=== PATIENT | male | born 1930 | race Caucasian/White ===

== ENCOUNTER 2017-07-23 18:38 | Inpatient (IN) | payer MEDICARE, OTHER ==
[~2017-07-23] VITALS: Ht 182.9 cm; Wt 100.5 kg
[~2017-07-23 18:38] MED LIST: ALLO300 PO; CARB1DRO EACH EYE; DIGO0.12 PO; LEVO125T3 PO; METO25 PO; OMEP20TA39 PO; SERT-129 PO; TERA2CAP3 PO; TRAZ100 PO; WARF5 PO
[2017-07-23 19:04] VITALS: BP 132/73; PULSE 150; RESP 16; O2SAT 97
[2017-07-23] MEDS ORDERED: DILTIAZEM HCL 25 MG/5 ML VIAL IV ONE (19:15)
[2017-07-23] MEDS ORDERED: SODIUM CHLORIDE 0.9% FLUSH 10 ML FLUSH IVF PRN (19:15)
[2017-07-23 19:24] LABS: AUTOMATED NEUTROPHIL # 4.2 TH/MM3 (1.8-7.7); BASOPHIL % 0.2 % (0.0-2.0); EOSINOPHIL % 0.5 % (0.0-4.0); HEMOGLOBIN 14.6 GM/DL (13.0-17.0); LYMPH % 3.6 % (9.0-44.0); LYMPHOCYTE # 0.2 TH/MM3 (1.0-4.8); MEAN CELL VOLUME 86.7 FL (80.0-100.0); MEAN CORPUSCULAR HEMOGLOBIN 29.3 PG (27.0-34.0); MEAN CORPUSCULAR HGB CONC 33.9 % (32.0-36.0); MEAN PLATELET VOLUME 8.1 FL (7.0-11.0); MONO % 1.3 % (0.0-8.0); MONOCYTE # 0.1 TH/MM3 (0-0.9); NEUT % 94.4 % (16.0-70.0); PLATELET COUNT 71 TH/MM3 (150-450); RED BLOOD COUNT 4.97 MIL/MM3 (4.50-5.90); WHITE BLOOD COUNT 4.4 TH/MM3 (4.0-11.0)
[2017-07-23 19:28] VITALS: PULSE 120; RESP 18; O2SAT 98
[2017-07-23] MEDS ORDERED: SODIUM CHLORIDE 0.9% FLUSH 10 ML FLUSH IV FLUSH PRN (19:30)
[2017-07-23] MEDS ORDERED: DILTIAZEM INJ 125 MG in SODIUM CHLORIDE 0.9% INJ 100 ML IV PRN (19:30)
--- NOTE | 2017-07-23 19:35 | RADRPT ---
EXAM DATE/TIME: 07/23/2017 19:12 [facility] COMPARISON: CHEST SINGLE AP, July 15, 2013, 20:51. INDICATIONS : Chest pain MEDICAL HISTORY : Cardiovascular disease. SURGICAL HISTORY : None. ENCOUNTER: Initial ACUITY: 1 day PAIN SCORE: 2/10 LOCATION: Bilateral chest FINDINGS: A single view of the chest demonstrates the lungs to be symmetrically aerated without evidence of mas s, infiltrate or effusion. The cardiomediastinal contours are unremarkable. Osseous structures are intact. CONCLUSION: No evidence of acute cardiopulmonary disease. Luis Fernando Krishnamurthy MD on July 23, 2017 at 19:33 Board Certified Radiologist. This report was verified electronically.
--- NOTE | 2017-07-23 19:38 | PD ---
HPI Chief Complaint: Chest Pain Time Seen by Provider: 19:06 Travel History International Travel<30 days: No Contact w/Intl Traveler<30days: No Traveled to known affect area: No History of Present Illness HPI Patient is an 86-year-old male presenting to emergency for evaluation of chest pain. Per EMS the pain started approximately 3:00 this afternoon and was accompanied by nausea. Patient resides at the [place] [facility]ial. Patient states the pain is midsternal, he states it does not radiate to his arm or jaw. He reports feeling short of breath. Symptom onset was sudden, symptom severity is moderate to severe. Patient's symptoms are exacerbated with movement and exertion. EVAC reported that patient was in A. fib with RVR with a rate up to 120. Patient is a history of atrial fibrillation, hypertension, chronic kidney disease, type 2 diabetes, coronary artery disease, GERD, hypothyroidism. PFSH Past Medical History Arthritis: Yes Atrial Fibrillation: Yes Autoimmune Disease: Yes (RA) Depression: Yes High Cholesterol: Yes Congestive Heart Failure: Yes Coronary Artery Disease: Yes Diabetes: Yes GERD: Yes Gout: Yes Genitourinary: Yes (BPH) Hepatitis: No Hiatal Hernia: Yes Hypertension: Yes Immune Disorder: Yes Kidney Stones: Yes Musculoskeletal: Yes (SPINAL STENOSIS, ARTHRITIS,LUMBAR DISK HERNIATION, GOUT) Respiratory: Yes (SLEEP APNEA) Myocardial Infarction: Yes (4 MD'S) Renal Failure: Yes Sleep Apnea: Yes Thyroid Disease: Yes Triglycerides - High: Yes Past Surgical History Abdominal Surgery: Yes (INGUINAL HERNIA REPAIR, APPENDECTOMY) Appendectomy: Yes Body Medical Devices: L HIP/THIGH PLATE AND SCREWS, R ANKLE PLATE AND SCREWS Eye Surgery: Yes (BILATERAL CATARACT SURGERY) Other Surgery: Yes (APPENDECTOMY, HERNIA REPAIR) Social History Alcohol Use: Yes (1 GLASS SCOTCH OCC) Tobacco Use: No Substance Use: No Allergies-Medications (Allergen,Severity, Reaction): Coded Allergies: No Known Allergies (Verified Allergy, Unknown, 07/23/17) Reported Meds & Prescriptions Reported Meds & Active Scripts Active Reported Melatonin 5 Mg Tab 5 Mg PO HS Levothyroxine (Levothyroxine Sodium) 125 Mcg Tab 125 Mcg PO DAILY Lasix (Furosemide) 20 Mg Tab 20 Mg PO DAILY Ibuprofen 400 Mg Tab 400 Mg PO Q8H PRN Fibercon (Calcium Polycarbophil) 625 Mg Tab 625 Mg PO PRN Digoxin 0.125 Mg Tab 0.125 Mg PO EVERY OTHER DAY Colace (Docusate Sodium) 100 Mg Capsule 100 Mg PO DAILY Carvedilol 6.25 Mg Tab 6.25 Mg PO BID Biofreeze Topical (Menthol Topical) 4 % Gel 1 Applic TOPICAL DIRECTED PRN Aspirin 81 Mg Chew 81 Mg CHEW ONCE Nitrostat SL (Nitroglycerin) 0.4 Mg Subl 0.4 Mg SL DIRECTED PRN 1 tablet under the tongue as needed for chest pain. Repeat every 5 minutes for a total of 3 DOSES or call 911 if NO relief. Milk of Magnesia Liq (Magnesium Hydroxide) 400 Mg/5 Ml Susp 30 Ml PO DAILY PRN Meloxicam 15 Mg Tab 15 Mg PO DAILY Omeprazole 20 Mg Tab 20 Mg PO DAILY Metolazone 5 Mg Tab 5 Mg PO THURSDAY Aldactone (Spironolactone) 25 Mg Tab 25 Mg PO DAILY Tylenol (Acetaminophen) 325 Mg Tab 650 Mg PO Q4H PRN Thera-Tabs (Multiple Vitamin) 1 Tab Tab Terazosin (Terazosin HCl) 2 Mg Cap 2 Mg PO HS Sertraline (Sertraline HCl) 100 Mg Tab 100 Mg PO HS Refresh Opth Drops (Polyvinyl Alcohol-Povidone Opth Drops) 1.4-0.6% Drops 1-2 Drop EACH EYE PRN PRN Poly-Iron 150 (Polysaccharide Iron Complex) 150 Mg Iron Cap 150 Mg PO Q12HR Review of Systems Except as stated in HPI: all other systems reviewed are Neg Cardiovascular: Positive: Chest Pain or Discomfort, Irregular Rhythm, Tachycardia, Dyspnea on exertion Respiratory: Positive: Shortness of Breath Physical Exam Narrative GENERAL: Overweight, well-developed, alert elderly gentleman. Presenting in no acute distress. SKIN: Warm and dry. HEAD: Atraumatic. Normocephalic. EYES: Pupils equal and round. No scleral icterus. No injection or drainage. ENT: No nasal bleeding or discharge. Mucous membranes pink and moist. NECK: Trachea midline. No JVD. CARDIOVASCULAR: Regular irregular, tachycardic RESPIRATORY: No accessory muscle use. Diminished in bases GASTROINTESTINAL: Abdomen soft, non-tender, nondistended. Hepatic and splenic margins not palpable. MUSCULOSKELETAL: Extremities without clubbing, cyanosis, or edema. No obvious deformities. NEUROLOGICAL: Awake and alert. No obvious cranial nerve deficits. Motor grossly within normal limits. Five out of 5 muscle strength in the arms and legs. Normal speech. PSYCHIATRIC: Appropriate mood and affect; insight and judgment normal. Data Data Last Documented VS Vital Signs Date Time Temp Pulse Resp B/P (MAP) Pulse Ox O2 Delivery O2 Flow Rate FiO2 07/23/17 22:07 96 20 125/59 (81) 100 2.00 07/23/17 21:20 Nasal Cannula 07/23/17 19:43 98.6 Orders Orders Electrocardiogram (07/23/17 19:) B-Type Natriuretic Peptide (07/23/17 19:) Ckmb (Isoenzyme) Profile (07/23/17 19:06) Complete Blood Count With Diff (07/23/17:) Comprehensive Metabolic Panel (07/23/17:) Magnesium (Mg) (07/23/17:) Prothrombin Time / Inr (Pt) (07/23/17:) Act Partial Throm Time (Ptt) (07/23/17:) Troponin I (07/23/17:) Lipase (07/23/17 19:) Chest, Single Ap (07/23/17 19:06) Ecg Monitoring (07/23/17 19:06) Bilateral Bp Monitoring (07/23/17:) Iv Access Insert/Monitor (07/23/17:) Oximetry (07/23/17:) Oxygen Administration (07/23/17:) Sodium Chloride 0.9% Flush (Ns Flush) (07/23/17 19:15) Diltiazem Inj (Cardizem Inj) (07/23/17 19:15) Digoxin (07/23/17 19:30) Diltiazem Inj (Cardizem Inj) (07/23/17 19:30) Sodium Chloride 0.9% Flush (Ns Flush) (07/23/17 19:30) Diltiazem Inj (Cardizem Inj) (07/23/17 19:45) Ct Abd/Pel W Iv Contrast(Rout) (07/23/17 ) Admit Order (Ed Use Only) (07/23/17 22:41) Labs Laboratory Tests Test 07/23/17 19:07 07/23/17 19:09 Digoxin Level 0.5 NG/ML White Blood Count 4.4 TH/MM3 Red Blood Count 4.97 MIL/MM3 Hemoglobin 14.6 GM/DL Hematocrit 43.0 % Mean Corpuscular Volume 86.7 FL Mean Corpuscular Hemoglobin 29.3 PG Mean Corpuscular Hemoglobin Concent 33.9 % Red Cell Distribution Width 15.0 % Platelet Count 71 TH/MM3 Mean Platelet Volume 8.1 FL Neutrophils (%) (Auto) 94.4 % Lymphocytes (%) (Auto) 3.6 % Monocytes (%) (Auto) 1.3 % Eosinophils (%) (Auto) 0.5 % Basophils (%) (Auto) 0.2 % Neutrophils # (Auto) 4.2 TH/MM3 Lymphocytes # (Auto) 0.2 TH/MM3 Monocytes # (Auto) 0.1 TH/MM3 Eosinophils # (Auto) 0.0 TH/MM3 Basophils # (Auto) 0.0 TH/MM3 CBC Comment AUTO DIFF Differential Total Cells Counted 100 Neutrophils % (Manual) 70 % Band Neutrophils % 24 % Lymphocytes % 4 % Monocytes % 1 % Eosinophils % 1 % Neutrophils # (Manual) 4.1 TH/MM3 Nucleated Red Blood Cells 1 /100 WBC Differential Comment FINAL DIFF MANUAL Toxic Vacuolation PRESENT Platelet Estimate LOW Platelet Morphology Comment NORMAL Prothrombin Time 11.5 SEC Prothromb Time International Ratio 1.1 RATIO Activated Partial Thromboplast Time 23.7 SEC Blood Urea Nitrogen 25 MG/DL Creatinine 1.48 MG/DL Random Glucose 84 MG/DL Total Protein 6.9 GM/DL Albumin 3.5 GM/DL Calcium Level 9.4 MG/DL Magnesium Level 1.6 MG/DL Alkaline Phosphatase 219 U/L Aspartate Amino Transf (AST/SGOT) 459 U/L Alanine Aminotransferase (ALT/SGPT) 257 U/L Total Bilirubin 3.0 MG/DL Sodium Level 137 MEQ/L Potassium Level 4.6 MEQ/L Chloride Level 101 MEQ/L Carbon Dioxide Level 26.6 MEQ/L Anion Gap 9 MEQ/L Estimat Glomerular Filtration Rate 45 ML/MIN Total Creatine Kinase 50 U/L Troponin I LESS THAN 0.02 NG/ML B-Type Natriuretic Peptide 58 PG/ML Lipase 306 U/L MDM Medical Decision Making Medical Screen Exam Complete: Yes Emergency Medical Condition: Yes Interpretation(s) Vital Signs Date Time Temp Pulse Resp B/P (MAP) Pulse Ox O2 Delivery O2 Flow Rate FiO2 07/23/17 19:28 120 18 98 Nasal Cannula 2.00 3/15/18 19:04 150 16 132/73 (54) 97 Differential Diagnosis Cardiac arrhythmia versus metabolic abnormality versus congestive heart failure versus other Narrative Course Patient presented to emergency for evaluation of shortness of breath and chest pain. Patient was found to be tachycardic, initial EKG showed atrial fibrillation with RVR. Patient was given 20 mg of IV Cardizem, heart rate remained elevated, Cardizem drip was initiated. Patient complained of mild nausea on presentation. When labs resulted, liver enzymes were elevated. CBC was unremarkable. BUN and creatinine are slightly elevated. Heart rate trended down with Cardizem drip. CT scan of the abdomen and pelvis ordered. Discussed findings with my attending physician Discussed findings with Dr. Luis who accepted admission. She was advised on the CT scan the abdomen and pelvis and will follow. Admit orders placed. Diagnosis Primary Impression: Atrial fibrillation with rapid ventricular response Additional Impressions: Transaminitis CKD (chronic kidney disease) Qualified Codes: N18.9 - Chronic kidney disease, unspecified Admitting Information Admitting Physician Requests: Admit Condition: Stable Margarita Dee Jul 23, 2017 19:38
[2017-07-23 19:43] VITALS: TEMP 98.6
[2017-07-23 19:43] LABS: ALT (GPT) 257 U/L (12-78)
[2017-07-23 19:45] LABS: INTERNATIONAL NORMALIZED RATIO 1.1 RATIO; PROTHROMBIN TIME - PATIENT 11.5 SEC (9.8-11.6)
[2017-07-23] MEDS ORDERED: DILTIAZEM HCL 50 MG/10 ML VIAL IV ONE (19:45)
[2017-07-23 20:11] LABS: ALBUMIN 3.5 GM/DL (3.4-5.0); ALKALINE PHOSPHATASE 219 U/L (45-117); AST (GOT) 459 U/L (15-37); BICARBONATE 26.6 MEQ/L (21.0-32.0); BLOOD UREA NITROGEN 25 MG/DL (7-18); CALCIUM 9.4 MG/DL (8.5-10.1); CHLORIDE 101 MEQ/L (98-107); CREATININE 1.48 MG/DL (0.60-1.30); GLOMERULAR FILTRATION RATE 45 ML/MIN (>89); GLUCOSE,RANDOM 84 MG/DL (74-106); MAGNESIUM 1.6 MG/DL (1.5-2.5); SODIUM (NA) 137 MEQ/L (136-145); TOTAL PROTEIN 6.9 GM/DL (6.4-8.2); TROPONIN I LESS THAN 0.02 NG/ML (0.02-0.05)
[2017-07-23] MEDS ORDERED: LEVO125T4 PO (20:12)
[2017-07-23] MEDS ORDERED: MENT4GEL2 TOPICAL (20:12)
[2017-07-23] MEDS ORDERED: MELO15TA20 PO (20:12)
[2017-07-23] MEDS ORDERED: TYLE325T PO (20:12)
[2017-07-23] MEDS ORDERED: SERT-129 PO (20:12)
[2017-07-23] MEDS ORDERED: NITR0.4S SL (20:12)
[2017-07-23] MEDS ORDERED: MILKSUS PO (20:12)
[2017-07-23] MEDS ORDERED: REFRDRO EACH EYE (20:12)
[2017-07-23] MEDS ORDERED: MELA5 PO (20:12)
[2017-07-23] MEDS ORDERED: IBUP1TAB5 PO (20:12)
[2017-07-23] MEDS ORDERED: THERTAB53 (20:12)
[2017-07-23] MEDS ORDERED: DIGO0.12 PO (20:12)
[2017-07-23] MEDS ORDERED: FIBE625T PO (20:12)
[2017-07-23] MEDS ORDERED: METO5TAB3 PO (20:12)
[2017-07-23] MEDS ORDERED: SPIR25 PO (20:12)
[2017-07-23] MEDS ORDERED: OMEP20TA93 PO (20:12)
[2017-07-23] MEDS ORDERED: COLA100C5 PO (20:12)
[2017-07-23] MEDS ORDERED: NU-IRON PO (20:12)
[2017-07-23] MEDS ORDERED: CARV6.252 PO (20:12)
[2017-07-23] MEDS ORDERED: ASPI-516 CHEW (20:12)
[2017-07-23] MEDS ORDERED: TERA2CAP3 PO (20:12)
[2017-07-23] MEDS ORDERED: FURO1TAB62 PO (20:12)
[2017-07-23 20:45] LABS: BANDS 24 % (0-6); CORRECTED NUCLEATED RBC 1 /100 WBC (0-0); LYMPHOCYTES 4 % (9-44); MONOCYTES 1 % (0-8); NEUTROPHIL # MANUAL DIFF 4.1 TH/MM3 (1.8-7.7); NUCLEATED RED BLOOD CELL 1 (0-0); POLYS (SEG NEUTROPHILS) 70 % (16-70)
[2017-07-23 20:46] LABS: TOXIC VACUOLATION PRESENT (NONE SEEN)
[2017-07-23 21:20] VITALS: BP 112/58; PULSE 115; RESP 18; O2SAT 100
[2017-07-23 22:07] VITALS: BP 125/59; PULSE 96; RESP 20; O2SAT 100
[2017-07-23] MEDS ORDERED: IOHEXOL 350 MG/ML 10 ML VIAL (for RAD DIAG) IVCONTRAST ONE (22:44)
--- NOTE | 2017-07-23 23:01 | RADRPT ---
EXAM DATE/TIME: 07/23/2017 22:37 [facility] COMPARISON: CT ABDOMEN & PELVIS W CONTRAST, September 22, 2014, 22:08. INDICATIONS : Patient complains of abdominal pain with nausea. IV CONTRAST: 100 cc Omnipaque 350 (iohexol) IV ORAL CONTRAST: No oral contrast ingested. RADIATION DOSE: 15.76 CTDIvol (mGy) MEDICAL HISTORY : Cardiovascular disease. Hypertension. Renal calculi. SURGICAL HISTORY : Appendectomy. Inguinal hernia repair. ENCOUNTER: Initial ACUITY: 1 day PAIN SCALE: 4/10 LOCATION: abdomen/pelvis TECHNIQUE: Volumetric scanning of the abdomen and pelvis was performed. Using automated exposure control and ad justment of the mA and/or kV according to patient size, radiation dose was kept as low as reasonably achievable to obtain optimal diagnostic quality images. DICOM format image data is available electro nically for review and comparison. FINDINGS: LOWER LUNGS: Very tiny bilateral pleural effusions with concomitant minimal atelectatic changes. Other Waldo calci fication of the coronary arteries. LIVER: Homogeneous density without lesion. There is no dilation of the biliary tree. Slight increased densi ty in the gallbladder neck may represent tiny stones or sludge. Gallbladder is mildly distended. SPLEEN: Spleen is enlarged measuring 16.8 cm in greatest SI dimension. PANCREAS: Within normal limits. KIDNEYS: Normal in size and shape. Stable bilateral renal cortical cysts. No hydronephrosis or nephrolithiasis . ADRENAL GLANDS: Stable 2.2 cm nodule on the right. VASCULAR: There is no aortic aneurysm. Dense calcification of the abdominal and pelvic vasculature. Retroaortic left renal vein. BOWEL/MESENTERY: Stable inflammatory stranding within the mid mesentery possibly representing a chronic mesenteritis. ABDOMINAL WALL: Within normal limits. RETROPERITONEUM: There is no lymphadenopathy. BLADDER: No wall thickening or mass. REPRODUCTIVE: Within normal limits. INGUINAL: There is no lymphadenopathy or hernia. MUSCULOSKELETAL: Levoscoliosis of the lumbar spine with associated degenerative changes. Compression screw and sidepla te securing a presumed old femoral neck fracture on the left. CONCLUSION: 1. Mild gallbladder distention with some increased density in the dependent portion of the neck possi jess representing small stones or sludge. No pericholecystic stranding, however. 2. Splenomegaly. 3. Probable 2.2 cm right adrenal adenoma, unchanged. 4. 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 5. Atherosclerotic calcification of the coronary arteries. 6. Tiny, bilateral pleural effusions with common atelectatic changes. Waldo Mcguire MD on July 23, 2017 at 22:51 Board Certified Radiologist. This report was verified electronically.
[2017-07-23 23:14] VITALS: BP 124/62; PULSE 100; RESP 18; O2SAT 100
[2017-07-24] VITALS (13 sets, daily range): BP systolic 92–118; BP diastolic 42–60; PULSE 54–93; RESP 16–21; TEMP 98–98.5; O2SAT 96–100
[2017-07-24] MEDS ORDERED: ASPIRIN 81 MG CHEW TAB CHEW SCH (01:45)
[2017-07-24] MEDS ORDERED: LACTULOSE SYRUP 20 GM/30 ML CUP PO PRN (02:00)
[2017-07-24] MEDS ORDERED: ONDANSETRON HCL 4 MG/2 ML VIAL IVP PRN (02:00)
[2017-07-24] MEDS ORDERED: SENNOSIDES 8.6 MG TAB PO PRN (02:00)
[2017-07-24] MEDS ORDERED: BISACODYL 10 MG SUPP RECTAL PRN (02:00)
[2017-07-24] MEDS ORDERED: MAGNESIUM HYDROXIDE SUSP 30 ML CUP PO PRN (02:00)
[2017-07-24] MEDS ORDERED: NALOXONE HCL 0.4 MG/ML AMP IV PUSH PRN (02:00)
[2017-07-24] MEDS ORDERED: MELATONIN 5 MG TAB PO ONE (03:00)
[2017-07-24] MEDS: HEPARIN SODIUM - SQ 10,000 UNITS/ML VIAL SQ SCH ×3 (03:30→17:18)
[2017-07-24] MEDS ORDERED: GLUCAGON 1 MG/ML VIAL OTHER PRN (04:00)
[2017-07-24] MEDS ORDERED: DEXTROSE 50% IN WATER 50 ML VIAL(D50) IV PUSH PRN (04:00)
--- NOTE | 2017-07-24 04:02 | HHI.HP ---
[facility] Admission Diagnosis AFIB W/ RVR Diagnoses: Travel History International Travel<30 Days: No Contact w/Intl Traveler <30 Da: No Traveled to Known Affected Are: No History of Present Illness 86-year-old male with a past medical history significant for CHF (no recent echo ), hypertension, hyperlipidemia, type 2 diabetes mellitus, chronic kidney disease, coronary artery disease, atrial fibrillation (not currently on chronic anticoagulation) and GERD presents to the emergency department from [facility] for the evaluation of chest pain. Per ED documentation, the chest pain started around 3:00 yesterday afternoon and was accompanied with nausea. The patient is a resident of the shelter. He is any chest pain at the time of our interview. He was found to be in atrial fibrillation with rapid ventricular response on arrival to the emergency department. At the time of our interview he complains of bilateral lower extremity pain and pain in his buttock region which he states is from lying on the hard palate. He denies any chest pain or shortness of breath. Denies nausea/vomiting/diarrhea. No fever/ chills. A&O 3. The patient is a poor historian whose past medical history is obtained from medical record review. Review of Systems Except as stated in HPI: all other systems reviewed are Neg Past Family Social History Past Medical History (Obtained from medical records) CHF (no recent echo), hypertension, hyperlipidemia, type 2 diabetes mellitus, chronic kidney disease, coronary artery disease, atrial fibrillation (not currently on chronic anticoagulation) and GERD Past Surgical History Appendectomy Reported Medications Reported Meds & Active Scripts Active Reported Melatonin 5 Mg Tab 5 Mg PO HS Levothyroxine (Levothyroxine Sodium) 125 Mcg Tab 125 Mcg PO DAILY Lasix (Furosemide) 20 Mg Tab 20 Mg PO DAILY Ibuprofen 400 Mg Tab 400 Mg PO Q8H PRN Fibercon (Calcium Polycarbophil) 625 Mg Tab 625 Mg PO PRN Digoxin 0.125 Mg Tab 0.125 Mg PO EVERY OTHER DAY Colace (Docusate Sodium) 100 Mg Capsule 100 Mg PO DAILY Carvedilol 6.25 Mg Tab 6.25 Mg PO BID Biofreeze Topical (Menthol Topical) 4 % Gel 1 Applic TOPICAL DIRECTED PRN Aspirin 81 Mg Chew 81 Mg CHEW ONCE Nitrostat SL (Nitroglycerin) 0.4 Mg Subl 0.4 Mg SL DIRECTED PRN 1 tablet under the tongue as needed for chest pain. Repeat every 5 minutes for a total of 3 DOSES or call 911 if NO relief. Milk of Magnesia Liq (Magnesium Hydroxide) 400 Mg/5 Ml Susp 30 Ml PO DAILY PRN Meloxicam 15 Mg Tab 15 Mg PO DAILY Omeprazole 20 Mg Tab 20 Mg PO DAILY Metolazone 5 Mg Tab 5 Mg PO THURSDAY Aldactone (Spironolactone) 25 Mg Tab 25 Mg PO DAILY Tylenol (Acetaminophen) 325 Mg Tab 650 Mg PO Q4H PRN Thera-Tabs (Multiple Vitamin) 1 Tab Tab Terazosin (Terazosin HCl) 2 Mg Cap 2 Mg PO HS Sertraline (Sertraline HCl) 100 Mg Tab 100 Mg PO HS Refresh Opth Drops (Polyvinyl Alcohol-Povidone Opth Drops) 1.4-0.6% Drops 1-2 Drop EACH EYE PRN PRN Poly-Iron 150 (Polysaccharide Iron Complex) 150 Mg Iron Cap 150 Mg PO Q12HR Allergies: Coded Allergies: No Known Allergies (Verified Allergy, Unknown, 07/23/17) Family History Negative for CAD/DM Social History Denies alcohol, tobacco and illicit drugs Physical Exam Vital Signs Vital Signs Date Time Temp Pulse Resp B/P (MAP) Pulse Ox O2 Delivery O2 Flow Rate FiO2 07/24/17 00:03 90 18 118/60 (79) 99 2.00 07/23/17 23:14 100 18 124/62 (82) 100 Nasal Cannula 2.00 07/23/17 22:07 96 20 125/59 (81) 100 2.00 07/23/17 21:20 115 18 112/58 (76) 100 Nasal Cannula 2.00 07/23/17 20:39 100 Nasal Cannula 2.00 07/23/17 20:38 115 137/65 07/23/17 19:43 98.6 07/23/17 19:28 120 18 98 Nasal Cannula 2.00 07/23/17 19:04 150 16 132/73 (92) 97 Physical Exam GENERAL: male lying in bed SKIN: No rashes, ecchymoses or lesions. Cool and dry. HEAD: Atraumatic. Normocephalic. No temporal or scalp tenderness. EYES: Pupils equal round and reactive. Extraocular motions intact. No scleral icterus. No injection or drainage. ENT: Nose without bleeding, purulent drainage or septal hematoma. Throat without erythema, tonsillar hypertrophy or exudate. Uvula midline. Airway patent. NECK: Trachea midline. No JVD or lymphadenopathy. Supple, nontender, no meningeal signs. CARDIOVASCULAR: Irregularly irregular rhythm with regular rate. No murmurs/rubs /gallops. RESPIRATORY: Clear to auscultation. Breath sounds equal bilaterally. No wheezes , rales, or rhonchi. GASTROINTESTINAL: Abdomen soft, non-tender, nondistended. No hepato-splenomegaly , or palpable masses. No guarding. MUSCULOSKELETAL: Extremities without clubbing, cyanosis, or edema. No joint tenderness, effusion, or edema noted. No calf tenderness. NEUROLOGICAL: Awake and alert. Cranial nerves II through XII intact. Motor and sensory grossly within normal limits. Normal speech. Laboratory Laboratory Tests Test 07/23/17 19:07 07/23/17 19:09 Digoxin Level 0.5 White Blood Count 4.4 Red Blood Count 4.97 Hemoglobin 14.6 Hematocrit 43.0 Mean Corpuscular Volume 86.7 Mean Corpuscular Hemoglobin 29.3 Mean Corpuscular Hemoglobin Concent 33.9 Red Cell Distribution Width 15.0 Platelet Count 71 Mean Platelet Volume 8.1 Neutrophils (%) (Auto) 94.4 Lymphocytes (%) (Auto) 3.6 Monocytes (%) (Auto) 1.3 Eosinophils (%) (Auto) 0.5 Basophils (%) (Auto) 0.2 Neutrophils # (Auto) 4.2 Lymphocytes # (Auto) 0.2 Monocytes # (Auto) 0.1 Eosinophils # (Auto) 0.0 Basophils # (Auto) 0.0 CBC Comment AUTO DIFF Differential Total Cells Counted 100 Neutrophils % (Manual) 70 Band Neutrophils % 24 Lymphocytes % 4 Monocytes % 1 Eosinophils % 1 Neutrophils # (Manual) 4.1 Nucleated Red Blood Cells 1 Differential Comment FINAL DIFF MANUAL Toxic Vacuolation PRESENT Platelet Estimate LOW Platelet Morphology Comment NORMAL Prothrombin Time 11.5 Prothromb Time International Ratio 1.1 Activated Partial Thromboplast Time 23.7 Blood Urea Nitrogen 25 Creatinine 1.48 Random Glucose 84 Total Protein 6.9 Albumin 3.5 Calcium Level 9.4 Magnesium Level 1.6 Alkaline Phosphatase 219 Aspartate Amino Transf (AST/SGOT) 459 Alanine Aminotransferase (ALT/SGPT) 257 Total Bilirubin 3.0 Sodium Level 137 Potassium Level 4.6 Chloride Level 101 Carbon Dioxide Level 26.6 Anion Gap 9 Estimat Glomerular Filtration Rate 45 Total Creatine Kinase 50 Troponin I LESS THAN 0.02 B-Type Natriuretic Peptide 58 Lipase 306 Result Diagram: 07/23/17190807/23/171908 Caprini VTE Risk Assessment Caprini VTE Risk Assessment: Mod/High Risk (score >= 2) Caprini Risk Assessment Model Point Value = 1 Point Value = 2 Point Value = 3 Point Value = 5 Age 41-60 Minor surgery BMI > 25 kg/m2 Swollen legs Varicose veins or History of unexplained or recurrent spontaneous Oral contraceptives or hormone replacement Sepsis (< 1 month) Serious lung disease, including pneumonia (< 1 month) Abnormal pulmonary function Acute myocardial infarction Congestive heart failure (< 1 month) History of inflammatory bowel disease Medical patient at bed rest Age 61-74 Arthroscopic surgery Major open surgery (> 45 min) Laparoscopic surgery (> 45 min) Malignancy Confined to bed (> 72 hours) Immobilizing plaster cast Central venous access Age >= 75 History of VTE Family history of VTE Factor V Leiden Prothrombin [id number] Lupus anticoagulant Anticardiolipin antibodies Elevated serum homocysteine Heparin-induced thrombocytopenia Other congenital or acquired thrombophilia Stroke (< 1 month) Elective arthroplasty Hip, pelvis, or leg fracture Acute spinal cord injury (< 1 month) Prophylaxis Regimen Total Risk Factor Score Risk Level Prophylaxis Regimen 0-1 Low Early ambulation 2 Moderate Order ONE of the following: *Sequential Compression Device (SCD) *Heparin 5000 units SQ BID 3-4 Higher Order ONE of the following medications: *Heparin 5000 units SQ TID *Enoxaparin/Lovenox 40 mg SQ daily (WT < 150 kg, CrCl > 30 mL/min) *Enoxaparin/Lovenox 30 mg SQ daily (WT < 150 kg, CrCl > 10-29 mL/min) *Enoxaparin/Lovenox 30 mg SQ BID (WT < 150 kg, CrCl > 30 mL/min) AND/OR *Sequential Compression Device (SCD) 5 or more Highest Order ONE of the following medications: *Heparin 5000 units SQ TID (Preferred with Epidurals) *Enoxaparin/Lovenox 40 mg SQ daily (WT < 150 kg, CrCl > 30 mL/min) *Enoxaparin/Lovenox 30 mg SQ daily (WT < 150 kg, CrCl > 10-29 mL/min) *Enoxaparin/Lovenox 30 mg SQ BID (WT < 150 kg, CrCl > 30 mL/min) AND *Sequential Compression Device (SCD) Assessment and Plan Assessment and Plan Assessment/plan: 1. Atrial fibrillation with rapid ventricular response EKG significant for A. fib with RVR, pulse 142, no ST segment elevations or depressions, personally reviewed Patient with history of atrial fibrillation although not on chronic anticoagulation likely secondary to frequent falls Diltiazem drip, wean as tolerated Telemetry Continue home digoxin, carvedilol 2. Transaminitis Unclear etiology CT of the abdomen/pelvis significant for mild gallbladder distention with some increased density in the dependent portion of the neck Gallbladder ultrasound pending Hepatitis profile pending Repeat CMP Patient without leukocytosis and denies right upper quadrant pain 3. CHF/CAD Continue home medications 4. Diabetes mellitus Sliding scale insulin Monitor blood glucose 5. Hypertension/hyperlipidemia/GERD/hypothyroidism Continue home medications 6. Chronic kidney disease Creatinine 1.48, baseline for this patient Monitor renal function FEN Heart healthy diabetic diet Electrolytes: Monitor and replete when necessary Heparin PT consulted, appreciate assistance Physician Certification 2 Midnight Certification Type: Admission for Inpatient Services Order for Inpatient Services The services are ordered in accordance with Medicare regulations or non- Medicare payer requirements, as applicable. In the case of services not specified as inpatient-only, they are appropriately provided as inpatient services in accordance with the 2-midnight benchmark. Estimated LOS (days): 2 2 days is the estimated time the patient will need to remain in the hospital, assuming treatment plan goals are met and no additional complications. Post-Hospital Plan: Not yet determined Aimee Luis MD Jul 24, 2017 04:02
[2017-07-24] MEDS: INSULIN ASPART SUPPLEMENTAL SCALE SQ SCH ×4 (08:00→20:16)
[2017-07-24] MEDS: SODIUM CHLORIDE 0.9% FLUSH 10 ML FLUSH IV FLUSH SCH ×2 (09:00→20:16)
[2017-07-24] MEDS: LEVOTHYROXINE SODIUM 125 MCG TAB PO SCH (10:06)
[2017-07-24] MEDS: DOCUSATE SODIUM 50 MG/SENNA 8.6 MG TAB PO SCH ×2 (10:06→20:15)
[2017-07-24] MEDS: PANTOPRAZOLE SOD 20 MG DELAYED RELEASE TAB PO SCH (10:06)
[2017-07-24] MEDS: SPIRONOLACTONE 25 MG TAB PO SCH (10:06)
[2017-07-24] MEDS: CARVEDILOL 6.25 MG TAB PO SCH ×2 (10:06→20:15)
[2017-07-24] MEDS: FUROSEMIDE 20 MG TAB PO SCH (10:07)
[2017-07-24] MEDS: DIGOXIN 0.125 MG TAB PO SCH (10:07)
--- NOTE | 2017-07-24 10:37 | RADRPT ---
EXAM DATE/TIME: 07/24/2017 07:50 [place] COMPARISON: CT ABDOMEN & PELVIS W CONTRAST, July 23, 2017, 22:37. INDICATIONS : Right upper quadrant pain. MEDICAL HISTORY : Myocardial infarction. Congestive heart failure. Hypercholesterolemia. Thyroid disease. Kidney stones . Renal failure. Arthritis. GERD. Gout. Diabetes. SURGICAL HISTORY : Appendectomy. Hiatal hernia repair. Left hip thigh repair. Right ankle repair. ENCOUNTER: Initial ACUITY: 1 day PAIN SCORE: 5/10 LOCATION: Right upper quadrant MEASUREMENTS: LIVER: 19.5 cm length COMMON DUCT: 7 mm RIGHT KIDNEY: 12.2 x 5.0 x 4.2 cm FINDINGS: LIVER: Echotexture the liver is somewhat heterogeneous. No focal masses seen. The left lobe of the liver is not well visualized. There is no intrahepatic biliary ductal dilation. COMMON DUCT: No intraluminal mass or stone visualized. GALLBLADDER: There is mild gallbladder wall thickening. No definite stones are seen. There is minimal sludge in th e dependent portion of the gallbladder. There is no pericolic cystic fluid. PANCREAS: The pancreas was not well-visualized due to overlying bowel gas. RIGHT KIDNEY: There are simple cysts within the right kidney. The largest measures 3.5 x 2.9 x 3.2 cm. CONCLUSION: 1. The examination demonstrates mild gallbladder wall thickening and sludge in the dependent portion of the gallbladder. No paracolic cystic fluid is evident. 2. Simple cyst identified within the right kidney. 3. No stones seen within the common duct. Maged Cobb MD on July 24, 2017 at 9:52 Board Certified Radiologist. This report was verified electronically.
--- NOTE | 2017-07-24 14:33 | EKG ---
Date Performed: 07/23/2017 Time Performed: 19:03:54 PTAGE: 86 years EKG: ATRIAL FIBRILLATION WITH RAPID VENTRICULAR RESPONSE INFERIOR MYOCARDIAL INFARCTION MODERATE T-WAVE ABNORMALITY, CONSIDER LATERAL ISCHEMIA ABNORMAL ECG PREVIOUS TRACING 09/27/2014 Ventricular rate has increased significantly since prior tracing. Clinical correlation is recommended. DOCTOR: Kye Brown Interpretating Date/Time 07/24/2017 14:32:20
--- NOTE | 2017-07-24 17:48 | HHI.PR ---
Subjective Remarks This is a pleasant 86 y/o female with CHF, Hypertension, Hyperlipidemia, DM II, chronic kidney disease, atrial fibrillation not currently on chronic anticoagulation, resident of a skilled nursing, Admitted today. no changes to anterior assessment Objective Vital Signs Date Time Temp Pulse Resp B/P (MAP) Pulse Ox O2 Delivery O2 Flow Rate FiO2 07/24/17 16:30 07/24/17 15:18 70 16 108/53 (71) 100 Nasal Cannula 2.00 07/24/17 12:00 54 07/24/17 12:00 98.1 60 17 92/55 (67) 100 07/24/17 10:17 65 16 96/50 (65) 100 07/24/17 09:16 67 07/24/17 09:13 98.0 82 21 109/53 (71) 100 07/24/17 07:32 70 17 117/57 (77) 96 07/24/17 06:39 74 16 117/57 (77) 99 Nasal Cannula 2.00 07/24/17 00:03 90 18 118/60 (79) 99 2.00 07/23/17 23:14 100 18 124/62 (82) 100 Nasal Cannula 2.00 07/23/17 22:07 96 20 125/59 (81) 100 2.00 07/23/17 21:20 115 18 112/58 (76) 100 Nasal Cannula 2.00 07/23/17 20:39 100 Nasal Cannula 2.00 07/23/17 20:38 115 137/65 07/23/17 19:43 98.6 07/23/17 19:28 120 18 98 Nasal Cannula 2.00 07/23/17 19:04 150 16 132/73 (92) 97 Result Diagram: 07/23/17190807/23/171908 Imaging Last Impressions Gall Bladder Ultrasound 07/24/17 0000 Signed Impressions: Service Date/Time: Monday, July 24, 2017 07:50 - CONCLUSION: 1. The examination demonstrates mild gallbladder wall thickening and sludge in the dependent portion of the gallbladder. No paracolic cystic fluid is evident. 2. Simple cyst identified within the right kidney. 3. No stones seen within the common duct. Maged Cobb MD Chest X-Ray 07/23/171905 Signed Impressions: Service Date/Time: July 19:12 - CONCLUSION: No evidence of acute cardiopulmonary disease. Luis Fernando Krishnamurthy MD Abdomen/Pelvis CT 07/23/17 0000 Signed Impressions: Service Date/Time: July 22:37 - CONCLUSION: 1. Mild gallbladder distention with some increased density in the dependent portion of the neck possibly representing small stones or sludge. No pericholecystic stranding, however. 2. Splenomegaly. 3. Probable 2.2 cm right adrenal adenoma, unchanged. 4. 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 5. Atherosclerotic calcification of the coronary arteries. 6. Tiny, bilateral pleural effusions with common atelectatic changes. Waldo Mcguire MD Procedures None Other Results Laboratory Tests Test 07/23/17 19:09 07/24/17 04:55 07/24/17 05:10 White Blood Count 4.4 TH/MM3 Red Blood Count 4.97 MIL/MM3 Hemoglobin 14.6 GM/DL Hematocrit 43.0 % Mean Corpuscular Volume 86.7 FL Mean Corpuscular Hemoglobin 29.3 PG Mean Corpuscular Hemoglobin Concent 33.9 % Red Cell Distribution Width 15.0 % Platelet Count 71 TH/MM3 Mean Platelet Volume 8.1 FL Neutrophils (%) (Auto) 94.4 % Lymphocytes (%) (Auto) 3.6 % Monocytes (%) (Auto) 1.3 % Eosinophils (%) (Auto) 0.5 % Basophils (%) (Auto) 0.2 % Neutrophils # (Auto) 4.2 TH/MM3 Lymphocytes # (Auto) 0.2 TH/MM3 Monocytes # (Auto) 0.1 TH/MM3 Eosinophils # (Auto) 0.0 TH/MM3 Basophils # (Auto) 0.0 TH/MM3 CBC Comment AUTO DIFF Differential Total Cells Counted 100 Neutrophils % (Manual) 70 % Band Neutrophils % 24 % Lymphocytes % 4 % Monocytes % 1 % Eosinophils % 1 % Neutrophils # (Manual) 4.1 TH/MM3 Nucleated Red Blood Cells 1 /100 WBC Differential Comment FINAL DIFF MANUAL Toxic Vacuolation PRESENT Platelet Estimate LOW Platelet Morphology Comment NORMAL Prothrombin Time 11.5 SEC Prothromb Time International Ratio 1.1 RATIO Activated Partial Thromboplast Time 23.7 SEC Blood Urea Nitrogen 25 MG/DL Creatinine 1.48 MG/DL Random Glucose 84 MG/DL Total Protein 6.9 GM/DL Albumin 3.5 GM/DL Calcium Level 9.4 MG/DL Magnesium Level 1.6 MG/DL Alkaline Phosphatase 219 U/L Aspartate Amino Transf (AST/SGOT) 459 U/L Alanine Aminotransferase (ALT/SGPT) 257 U/L Total Bilirubin 3.0 MG/DL Sodium Level 137 MEQ/L Potassium Level 4.6 MEQ/L Chloride Level 101 MEQ/L Carbon Dioxide Level 26.6 MEQ/L Anion Gap 9 MEQ/L Estimat Glomerular Filtration Rate 45 ML/MIN Total Creatine Kinase 50 U/L Troponin I LESS THAN 0.02 NG/ML B-Type Natriuretic Peptide 58 PG/ML Lipase 306 U/L Hepatitis A IgM Antibody NONREACTIVE Hepatitis B Surface Antigen NONREACTIVE Hepatitis B Core IgM Antibody NONREACTIVE Hepatitis C IgG Antibody NONREACTIVE Digoxin Level 0.6 NG/ML Medications and IVs Current Medications Medications (Trade) Dose Ordered Sig/Inge Route Start Time Stop Time Status Last Admin Diltiazem HCl 125 mg/Sodium Chloride 125 ml @ 5 mls/hr TITRATE PRN IV 07/23/17 19:30 07/23/17 20:38 (Coreg) 6.25 mg BID PO 07/24/17 09:00 07/24/17 10:06 (Lanoxin) 0.125 mg EVERY OTHER DAY PO 07/24/17 09:00 07/24/17 10:07 (Lasix) 20 mg DAILY PO 07/24/17 09:00 07/24/17 10:07 (Synthroid) 125 mcg DAILY@0700 PO 07/24/17 07:00 07/24/17 10:06 (Melatonin) 5 mg HS PO 07/24/17 21:00 (Zoloft) 100 mg HS PO 07/24/17 21:00 (Aldactone) 25 mg DAILY PO 07/24/17 09:00 07/24/17 10:06 (Hytrin) 2 mg HS PO 07/24/17 21:00 (Protonix) 20 mg DAILY PO 07/24/17 09:00 07/24/17 10:06 (NS Flush) 2 ml UNSCH PRN IV FLUSH 07/24/17 02:00 (NS Flush) 2 ml BID IV FLUSH 07/24/17 09:00 07/24/17 09:00 (Tylenol) 650 mg Q4H PRN PO 07/24/17 02:00 (Zofran Inj) 4 mg Q6H PRN IVP 07/24/17 02:00 (Heparin Inj) 5,000 units Q8H SQ 07/24/17 02:00 07/24/17 17:18 (Narcan Inj) 0.4 mg UNSCH PRN IV PUSH 07/24/17 02:00 (Kaylen-Colace) 1 tab BID PO 07/24/17 09:00 07/24/17 10:06 (Milk Of Magnesia Liq) 30 ml Q12H PRN PO 07/24/17 02:00 (Senokot) 17.2 mg Q12H PRN PO 07/24/17 02:00 (Dulcolax Supp) 10 mg DAILY PRN RECTAL 07/24/17 02:00 (Lactulose Liq) 30 ml DAILY PRN PO 07/24/17 02:00 (D50w (Vial) Inj) 50 ml UNSCH PRN IV PUSH 07/24/17 04:00 (Glucagon Inj) 1 mg UNSCH PRN OTHER 07/24/17 04:00 (NovoLOG SUPPLEMENTAL SCALE) 1 ACHS SLIDING SCALE SQ 07/24/17 08:00 A/P Assessment and Plan 1. Atrial fibrillation with rapid ventricular response EKG significant for A. fib with RVR, pulse 142, no ST segment elevations or depressions, Improving with Digoxin and Coreg Patient with history of atrial fibrillation although not on chronic anticoagulation likely secondary to frequent falls 2. Transaminitis Unclear etiology CT of the abdomen/pelvis significant for mild gallbladder distention with some increased density in the dependent portion of the neck Gallbladder ultrasound sludge positive will follow in am tomorrow may be related to passive edema secondary to Atrial Fibrillation with RVR follow in am tomorrow if continue elevated will get GI evaluation, Hepatitis profile negative 3. CHF/CAD Continue home medications 4. Diabetes mellitus Sliding scale insulin Monitor blood glucose 5. Hypertension/hyperlipidemia/GERD/hypothyroidism Continue home medications 6. Chronic kidney disease Stage III stable. DVT prophylaxis with heparin PT consult Discharge Planning admitted today following for the next 24 hours, tomorrow will be followed by another hospitalist. Tino Herrera MD Jul 24, 2017 17:47
[2017-07-24] MEDS: MELATONIN 5 MG TAB PO SCH (20:15)
[2017-07-24] MEDS: SERTRALINE HCL 100 MG TAB PO SCH (20:15)
[2017-07-24] MEDS: TERAZOSIN HCL 1 MG CAP PO SCH (20:16)
[2017-07-25] VITALS (23 sets, daily range): BP systolic 100–126; BP diastolic 50–60; PULSE 56–94; RESP 18; TEMP 97.6–98.7; O2SAT 97–100
[2017-07-25] MEDS: HEPARIN SODIUM - SQ 10,000 UNITS/ML VIAL SQ SCH ×2 (02:18→10:30)
[2017-07-25 05:20] LABS: AUTOMATED NEUTROPHIL # 6.4 TH/MM3 (1.8-7.7); BASOPHIL % 0.1 % (0.0-2.0); EOSINOPHIL # 0.1 TH/MM3 (0-0.4); EOSINOPHIL % 1.5 % (0.0-4.0); HEMATOCRIT 35.2 % (39.0-51.0); HEMOGLOBIN 12.1 GM/DL (13.0-17.0); LYMPH % 6.8 % (9.0-44.0); LYMPHOCYTE # 0.5 TH/MM3 (1.0-4.8); MEAN CELL VOLUME 85.9 FL (80.0-100.0); MEAN CORPUSCULAR HEMOGLOBIN 29.6 PG (27.0-34.0); MEAN CORPUSCULAR HGB CONC 34.5 % (32.0-36.0); MEAN PLATELET VOLUME 8.4 FL (7.0-11.0); MONO % 5.5 % (0.0-8.0); MONOCYTE # 0.4 TH/MM3 (0-0.9); NEUT % 86.1 % (16.0-70.0); PLATELET COUNT 65 TH/MM3 (150-450); RED BLOOD COUNT 4.09 MIL/MM3 (4.50-5.90); RED CELL DISTRIBUTION WIDTH 15.1 % (11.6-17.2); WHITE BLOOD COUNT 7.5 TH/MM3 (4.0-11.0)
[2017-07-25 06:06] LABS: ALBUMIN 2.6 GM/DL (3.4-5.0); ALKALINE PHOSPHATASE 130 U/L (45-117); ALT (GPT) 210 U/L (12-78); AST (GOT) 142 U/L (15-37); BICARBONATE 25.9 MEQ/L (21.0-32.0); BLOOD UREA NITROGEN 38 MG/DL (7-18); CALCIUM 8.6 MG/DL (8.5-10.1); CHLORIDE 102 MEQ/L (98-107); CREATININE 2.04 MG/DL (0.60-1.30); GLOMERULAR FILTRATION RATE 31 ML/MIN (>89); GLUCOSE,RANDOM 89 MG/DL (74-106); SODIUM (NA) 139 MEQ/L (136-145); TOTAL PROTEIN 5.5 GM/DL (6.4-8.2)
[2017-07-25] MEDS: LEVOTHYROXINE SODIUM 125 MCG TAB PO SCH (06:28)
[2017-07-25 06:45] LABS: TOXIC VACUOLATION PRESENT (NONE SEEN)
[2017-07-25] MEDS: INSULIN ASPART SUPPLEMENTAL SCALE SQ SCH ×4 (08:00→20:24)
[2017-07-25] MEDS: DOCUSATE SODIUM 50 MG/SENNA 8.6 MG TAB PO SCH ×2 (10:39→20:22)
[2017-07-25] MEDS: PANTOPRAZOLE SOD 20 MG DELAYED RELEASE TAB PO SCH (10:39)
[2017-07-25] MEDS: SODIUM CHLORIDE 0.9% FLUSH 10 ML FLUSH IV FLUSH SCH ×2 (10:39→20:23)
[2017-07-25] MEDS: SPIRONOLACTONE 25 MG TAB PO SCH (10:40)
[2017-07-25] MEDS: FUROSEMIDE 20 MG TAB PO SCH (10:40)
[2017-07-25] MEDS: CARVEDILOL 6.25 MG TAB PO SCH ×2 (10:40→20:22)
--- NOTE | 2017-07-25 14:16 | HHI.PR ---
Subjective Remarks Follow-up Zulma fontenot with RVR/transaminitis 07/25/17-patient seen and examined, currently rate control and no acute event overnight. However now with Dark stool Objective Vitals Vital Signs Date Time Temp Pulse Resp B/P (MAP) Pulse Ox O2 Delivery O2 Flow Rate FiO2 07/25/17 12:00 97.8 60 18 104/50 (68) 98 07/25/17 10:00 60 07/25/17 10:00 97.6 72 18 121/60 (80) 100 07/25/17 10:00 100 Room Air 07/25/17 09:00 64 07/25/17 08:00 66 07/25/17 07:00 66 07/25/17 06:00 91 07/25/17 05:00 88 07/25/17 04:00 Room Air 07/25/17 04:00 98.2 91 18 126/58 (80) 97 07/25/17 04:00 91 07/25/17 03:00 88 07/25/17 02:00 93 07/25/17 01:00 82 07/25/17 00:00 Room Air 07/25/17 00:00 78 07/25/17 00:00 98.3 78 18 100/55 (70) 98 07/24/17 23:00 86 07/24/17 22:00 93 07/24/17 21:00 80 07/24/17 20:00 98.1 84 20 117/54 (75) 99 07/24/17 20:00 84 07/24/17 16:30 07/24/17 16:00 68 07/24/17 16:00 98.5 68 20 101/42 (61) 100 07/24/17 15:18 70 16 108/53 (71) 100 Nasal Cannula 2.00 I/O 07/24/17 07/24/17 07/24/17 07/25/17 07/25/17 07/25/17 07:00 15:00 23:00 07:00 15:00 23:00 Intake Total 240 ml Balance 240 ml Intake Oral 240 ml # Voids 3 # Bowel Movements 1 Result Diagram: 07/25/17 0445 07/25/17 0445 Imaging Last Impressions Gall Bladder Ultrasound 07/24/17 0000 Signed Impressions: Service Date/Time: Monday, July 24, 2017 07:50 - CONCLUSION: 1. The examination demonstrates mild gallbladder wall thickening and sludge in the dependent portion of the gallbladder. No paracolic cystic fluid is evident. 2. Simple cyst identified within the right kidney. 3. No stones seen within the common duct. Maged Cobb MD Chest X-Ray 07/23/17 1906 Signed Impressions: Service Date/Time: July 19:12 - CONCLUSION: No evidence of acute cardiopulmonary disease. Luis Fernando Krishnamurthy MD Abdomen/Pelvis CT 07/23/17 0000 Signed Impressions: Service Date/Time: July 22:37 - CONCLUSION: 1. Mild gallbladder distention with some increased density in the dependent portion of the neck possibly representing small stones or sludge. No pericholecystic stranding, however. 2. Splenomegaly. 3. Probable 2.2 cm right adrenal adenoma, unchanged. 4. 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 5. Atherosclerotic calcification of the coronary arteries. 6. Tiny, bilateral pleural effusions with common atelectatic changes. Waldo Mcguire MD Objective Remarks GENERAL: NAD SKIN: Warm and dry. HEAD: Normocephalic. EYES: No scleral icterus. No injection or drainage. NECK: Supple, trachea midline. No JVD or lymphadenopathy. CARDIOVASCULAR: irreg Regular rate and rhythm without murmurs, gallops, or rubs. RESPIRATORY: Breath sounds equal bilaterally. No accessory muscle use. GASTROINTESTINAL: Abdomen soft, non-tender, nondistended. MUSCULOSKELETAL: No cyanosis, or edema. BACK: Nontender without obvious deformity. No CVA tenderness. A/P Problem List: (1) Atrial fibrillation with rapid ventricular response ICD Code: I48.91 - Unspecified atrial fibrillation Status: Acute (2) CKD (chronic kidney disease) ICD Code: N18.9 - Chronic kidney disease, unspecified Status: Acute (3) Transaminitis ICD Code: R74.0 - Nonspecific elevation of levels of transaminase and lactic acid dehydrogenase [LDH] Status: Acute Assessment and Plan 86-year-old man with 1. Atrial fibrillation with rapid ventricular response Currently rates controlled on Digoxin and Coreg Patient with history of atrial fibrillation although not on chronic anticoagulation likely secondary to frequent falls 2. Transaminitis Unclear etiology Hepatitis profile negative CT of the abdomen/pelvis significant for mild gallbladder distention with some increased density in the dependent portion of the neck Gallbladder ultrasound sludge positive LFTs trending down Consider GI consult 3. CHF/CAD Continue home medications 4. Diabetes mellitus Sliding scale insulin Monitor blood glucose 5. Hypertension/hyperlipidemia/GERD/hypothyroidism Continue home medications 6. Chronic kidney disease Stage III stable. 7. GI bleed? Check Hemoccults and consult GI PRN DVT prophylaxis with B-SCD; Hold heparin Problem Qualifiers (1) CKD (chronic kidney disease): Qualified Codes: N18.9 - Chronic kidney disease, unspecified Grant Mora MD Jul 25, 2017 14:16
[2017-07-25] MEDS: ACETAMINOPHEN 325 MG TAB PO PRN (14:59)
[2017-07-25] MEDS: MELATONIN 5 MG TAB PO SCH (20:22)
[2017-07-25] MEDS: SERTRALINE HCL 100 MG TAB PO SCH (20:22)
[2017-07-25] MEDS: TERAZOSIN HCL 1 MG CAP PO SCH (20:22)
[2017-07-26] VITALS (25 sets, daily range): BP systolic 105–122; BP diastolic 55–70; PULSE 60–85; RESP 18–20; TEMP 97.3–98.4; O2SAT 95–100
[2017-07-26] MEDS: LEVOTHYROXINE SODIUM 125 MCG TAB PO SCH (06:17)
[2017-07-26] MEDS: DIGOXIN 0.125 MG TAB PO SCH (07:56)
[2017-07-26] MEDS: DOCUSATE SODIUM 50 MG/SENNA 8.6 MG TAB PO SCH ×2 (07:56→21:08)
[2017-07-26] MEDS: PANTOPRAZOLE SOD 20 MG DELAYED RELEASE TAB PO SCH (07:56)
[2017-07-26] MEDS: CARVEDILOL 6.25 MG TAB PO SCH ×2 (07:56→21:08)
[2017-07-26] MEDS: FUROSEMIDE 20 MG TAB PO SCH (07:56)
[2017-07-26] MEDS: SPIRONOLACTONE 25 MG TAB PO SCH (07:56)
[2017-07-26] MEDS: SODIUM CHLORIDE 0.9% FLUSH 10 ML FLUSH IV FLUSH SCH ×2 (07:57→21:09)
[2017-07-26] MEDS: INSULIN ASPART SUPPLEMENTAL SCALE SQ SCH ×4 (08:00→21:00)
--- NOTE | 2017-07-26 10:59 | HHI.PR ---
Subjective Remarks Follow-up A. fib with RVR/transaminitis 07/25/17-patient seen and examined, currently rate control and no acute event overnight. However now with Dark stool 07/26/17-patient seen and examined, no acute event overnight, rate currently controlled. Denies any abdominal pain. Objective Vitals Vital Signs Date Time Temp Pulse Resp B/P (MAP) Pulse Ox O2 Delivery O2 Flow Rate FiO2 07/26/17 08:01 97.3 72 18 122/58 (79) 100 07/26/17 08:01 100 Nasal Cannula 2.00 07/26/17 07:01 65 07/26/17 06:00 63 07/26/17 05:00 70 07/26/17 04:00 98.1 69 18 118/55 (76) 97 07/26/17 04:00 Room Air 07/26/17 04:00 69 07/26/17 03:00 67 07/26/17 02:00 65 07/26/17 01:00 72 07/26/17 00:00 98.4 65 18 122/56 (78) 97 07/26/17 00:00 65 07/26/17 00:00 100 Room Air 07/25/17 23:00 69 07/25/17 22:00 74 07/25/17 21:00 68 07/25/17 20:00 67 07/25/17 20:00 98.2 67 18 106/54 (71) 98 07/25/17 20:00 100 Room Air 07/25/17 18:00 68 07/25/17 17:00 64 07/25/17 16:00 94 07/25/17 16:00 18 07/25/17 15:25 98.7 64 18 101/50 (67) 100 07/25/17 15:00 67 07/25/17 14:00 64 07/25/17 13:00 56 07/25/17 12:00 97.8 60 18 104/50 (68) 98 07/25/17 12:00 60 I/O 07/25/17 07/25/17 07/25/17 07/26/17 07/26/17 07/26/17 07:00 15:00 23:00 07:00 15:00 23:00 Intake Total 240 ml 720 ml 240 ml Output Total 700 ml 700 ml Balance 240 ml 20 ml -460 ml Intake Oral 240 ml 720 ml 240 ml Output Urine Total 700 ml 700 ml # Voids 3 # Bowel Movements 1 2 1 Result Diagram: 07/25/175 07/25/175 Imaging Last Impressions Gall Bladder Ultrasound 07/24/17 0000 Signed Impressions: Service Date/Time: Monday, July 24, 2017 07:50 - CONCLUSION: 1. The examination demonstrates mild gallbladder wall thickening and sludge in the dependent portion of the gallbladder. No paracolic cystic fluid is evident. 2. Simple cyst identified within the right kidney. 3. No stones seen within the common duct. Maged Cobb MD Chest X-Ray 07/23/17 1906 Signed Impressions: Service Date/Time: July 19:12 - CONCLUSION: No evidence of acute cardiopulmonary disease. Luis Fernando Krishnamurthy MD Abdomen/Pelvis CT 07/23/17 0000 Signed Impressions: Service Date/Time: July 22:37 - CONCLUSION: 1. Mild gallbladder distention with some increased density in the dependent portion of the neck possibly representing small stones or sludge. No pericholecystic stranding, however. 2. Splenomegaly. 3. Probable 2.2 cm right adrenal adenoma, unchanged. 4. 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 5. Atherosclerotic calcification of the coronary arteries. 6. Tiny, bilateral pleural effusions with common atelectatic changes. Waldo Mcguire MD Objective Remarks GENERAL: NAD SKIN: Warm and dry. HEAD: Normocephalic. EYES: No scleral icterus. No injection or drainage. NECK: Supple, trachea midline. No JVD or lymphadenopathy. CARDIOVASCULAR: irreg Regular rate and rhythm without murmurs, gallops, or rubs. RESPIRATORY: Breath sounds equal bilaterally. No accessory muscle use. GASTROINTESTINAL: Abdomen soft, non-tender, nondistended. MUSCULOSKELETAL: No cyanosis, or edema. BACK: Nontender without obvious deformity. No CVA tenderness. A/P Problem List: (1) Atrial fibrillation with rapid ventricular response ICD Code: I48.91 - Unspecified atrial fibrillation Status: Acute (2) CKD (chronic kidney disease) ICD Code: N18.9 - Chronic kidney disease, unspecified Status: Acute (3) Transaminitis ICD Code: R74.0 - Nonspecific elevation of levels of transaminase and lactic acid dehydrogenase [LDH] Status: Acute Assessment and Plan 86-year-old man with 1. Atrial fibrillation with rapid ventricular response Currently rates controlled on Digoxin and Coreg Patient with history of atrial fibrillation although not on chronic anticoagulation likely secondary to frequent falls 2. Transaminitis Unclear etiology Hepatitis profile negative CT of the abdomen/pelvis significant for mild gallbladder distention with some increased density in the dependent portion of the neck Gallbladder ultrasound sludge positive LFTs trending down GI consultation pending 3. CHF/CAD Continue home medications 4. Diabetes mellitus Sliding scale insulin Monitor blood glucose 5. Hypertension/hyperlipidemia/GERD/hypothyroidism Continue home medications 6. Chronic kidney disease Stage III stable. 7. GI bleed? Hemoccults negative DVT prophylaxis with B-SCD; Hold heparin Problem Qualifiers (1) CKD (chronic kidney disease): Qualified Codes: N18.9 - Chronic kidney disease, unspecified Grant Mora MD Jul 26, 2017 10:59
--- NOTE | 2017-07-26 11:21 | PD.CONS ---
HPI History of Present Illness This is a 86 year old male with hx CHF, AF, DM2, CKD 2who presented from his SNF with chest pain. AT this time he denies chest pain and admits lower abd pain that started "awhile ago." He cannot tell me anything about his stool but he denies n/v, hx problems with gallbladder, liver, pancreas. He had a colonoscopy 2014 that found polyps, ulcerations site prev polypectomy, diverticulosis, hemorrhoids. He is a poor historian. US indicated GB sludge, wall thickening, no stones in duct. CT showed GB distention, splenomegaly. GI is consulted for elevated LFTs. (Carri Nolasco) PFSH Past Medical History (Obtained from medical records) CHF (no recent echo), hypertension, hyperlipidemia, type 2 diabetes mellitus, chronic kidney disease, coronary artery disease, atrial fibrillation (not currently on chronic anticoagulation) and GERD Past Surgical History Appendectomy (Carri Nolasco) Coded Allergies: No Known Allergies (Verified Allergy, Unknown, 07/23/17) Family History Negative for CAD/DM Social History admits drinking 1 shot daily denies tobacco, illicit drugs (Carri Nolasco) Review of Systems Gastrointestinal: COMPLAINS OF: Abdominal pain, DENIES: Nausea, Vomiting otherwise noncontributory (Carri Nolasco) GI Exam Vitals I&O Vital Signs Date Time Temp Pulse Resp B/P (MAP) Pulse Ox O2 Delivery O2 Flow Rate FiO2 07/26/17 08:01 97.3 72 18 122/58 (79) 100 07/26/17 08:01 100 Nasal Cannula 2.00 07/26/17 07:01 65 07/26/17 06:00 63 07/26/17 05:00 70 07/26/17 04:00 98.1 69 18 118/55 (76) 97 07/26/17 04:00 Room Air 07/26/17 04:00 69 07/26/17 03:00 67 07/26/17 02:00 65 07/26/17 01:00 72 07/26/17 00:00 98.4 65 18 122/56 (78) 97 07/26/17 00:00 65 07/26/17 00:00 100 Room Air 07/25/17 23:00 69 07/25/17 22:00 74 07/25/17 21:00 68 18 20:00 67 07/25/17 20:00 98.2 67 18 106/54 (71) 98 07/25/17 20:00 100 Room Air 07/25/17 18:00 68 07/25/17 17:00 64 07/25/17 16:00 94 07/25/17 16:00 18 07/25/17 15:25 98.7 64 18 101/50 (67) 100 07/25/17 15:00 67 07/25/17 14:00 64 07/25/17 13:00 56 07/25/17 12:00 97.8 60 18 104/50 (68) 98 07/25/17 12:00 60 I/O 07/25/1718 18 18 18 07/26/17 07:00 15:00 23:00 07:00 15:00 23:00 Intake Total 240 ml 720 ml 240 ml Output Total 700 ml 700 ml Balance 240 ml 20 ml -460 ml Intake Oral 240 ml 720 ml 240 ml Output Urine Total 700 ml 700 ml # Voids 3 # Bowel Movements 1 2 1 Imaging Last Impressions Gall Bladder Ultrasound 07/24/17 0000 Signed Impressions: Service Date/Time: Monday, July 24, 2017 07:50 - CONCLUSION: 1. The examination demonstrates mild gallbladder wall thickening and sludge in the dependent portion of the gallbladder. No paracolic cystic fluid is evident. 2. Simple cyst identified within the right kidney. 3. No stones seen within the common duct. Maged Cobb MD Chest X-Ray 07/23/17 1906 Signed Impressions: Service Date/Time: July 19:12 - CONCLUSION: No evidence of acute cardiopulmonary disease. Luis Fernando Krishnamurthy MD Abdomen/Pelvis CT 07/23/17 0000 Signed Impressions: Service Date/Time: July 22:37 - CONCLUSION: 1. Mild gallbladder distention with some increased density in the dependent portion of the neck possibly representing small stones or sludge. No pericholecystic stranding, however. 2. Splenomegaly. 3. Probable 2.2 cm right adrenal adenoma, unchanged. 4. 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 5. Atherosclerotic calcification of the coronary arteries. 6. Tiny, bilateral pleural effusions with common atelectatic changes. Waldo Mcguire MD Laboratory Date/Time Source Procedure Growth Status 07/25/17 10:38 Stool Stool Stool Occult Blood ([facility]) - Final HEMOCCULT NEGATIVE Complete Physical Examination HEENT: PERRL; normocephalic; atraumatic; mild icterus. poor dentition CHEST: CTA, diminished CARDIAC: irr HR ABDOMEN: Soft, nondistended, nontender; bowel sounds are present in all four quadrants. EXTREMITIES: No clubbing, cyanosis, or edema. SKIN: Normal; no rash; no jaundice. [employer] SAL[employer] REPRESENTATIVE: slow to answer, answers simple questions (Carri Nolasco) Assessment and Plan Plan ASSESSMENT - elevated LFTs - TBIL 3.0, AST 459, ALT 257, ALP 219 on admission. tbil has increased, other LFTs trending down. CT showed GB distention, poss stones or sludge in GB neck. US showed gb wall thickenign and sludge in dependent portion gallbladder. neg for hepatitis. could be congestive vs gallbladder etiology. will get liver w/u r/o other cause elev liver chemistries. tolerating heart healthy diet PLAN - consider HIDA vs MRCP - liver w/u - diet per attending - supportive care - further recs to follow pt seen by myself and Dr Rizvi and this note is on his behalf (Carri Nolasco) Physician Comments Seen and examined, plan as above. Will follow up with you for further recommendations. Thank you for the consult. (Manjinder Rizvi MD) Carri Nolasco Jul 26, 2017 11:21 Manjinder Rizvi MD Jul 26, 2017 18:50
[2017-07-26] MEDS: ACETAMINOPHEN 325 MG TAB PO PRN (12:07)
[2017-07-26 12:14] LABS: BASOPHIL % 0.1 % (0.0-2.0); EOSINOPHIL # 0.1 TH/MM3 (0-0.4); EOSINOPHIL % 2.2 % (0.0-4.0); LYMPH % 9.6 % (9.0-44.0); LYMPHOCYTE # 0.5 TH/MM3 (1.0-4.8); MEAN CELL VOLUME 86.1 FL (80.0-100.0); MEAN CORPUSCULAR HEMOGLOBIN 29.5 PG (27.0-34.0); MEAN CORPUSCULAR HGB CONC 34.2 % (32.0-36.0); MEAN PLATELET VOLUME 9.2 FL (7.0-11.0); MONO % 4.7 % (0.0-8.0); MONOCYTE # 0.2 TH/MM3 (0-0.9); NEUT % 83.4 % (16.0-70.0); PLATELET COUNT 74 TH/MM3 (150-450); RED BLOOD COUNT 4.06 MIL/MM3 (4.50-5.90); RED CELL DISTRIBUTION WIDTH 15.3 % (11.6-17.2); WHITE BLOOD COUNT 4.8 TH/MM3 (4.0-11.0)
[2017-07-26 12:34] LABS: ALBUMIN 2.8 GM/DL (3.4-5.0); AST (GOT) 75 U/L (15-37); BICARBONATE 25.3 MEQ/L (21.0-32.0); BLOOD UREA NITROGEN 37 MG/DL (7-18); CALCIUM 8.8 MG/DL (8.5-10.1); CHLORIDE 101 MEQ/L (98-107); CREATININE 1.78 MG/DL (0.60-1.30); GLOMERULAR FILTRATION RATE 37 ML/MIN (>89); GLUCOSE,RANDOM 103 MG/DL (74-106); SODIUM (NA) 135 MEQ/L (136-145)
[2017-07-26 12:36] LABS: ALT (GPT) 151 U/L (12-78)
[2017-07-26 12:38] LABS: ALKALINE PHOSPHATASE 143 U/L (45-117); TOTAL BILIRUBIN ADULT 2.8 MG/DL (0.2-1.0)
[2017-07-26] MEDS: MELATONIN 5 MG TAB PO SCH (21:07)
[2017-07-26] MEDS: TERAZOSIN HCL 1 MG CAP PO SCH (21:08)
[2017-07-26] MEDS: SERTRALINE HCL 100 MG TAB PO SCH (21:08)
[2017-07-27] VITALS (17 sets, daily range): BP systolic 108–155; BP diastolic 60–81; PULSE 51–73; RESP 16–20; TEMP 97.2–98.5; O2SAT 95–100
[2017-07-27] MEDS: LEVOTHYROXINE SODIUM 125 MCG TAB PO SCH (06:13)
[2017-07-27] MEDS: INSULIN ASPART SUPPLEMENTAL SCALE SQ SCH ×4 (08:00→20:53)
[2017-07-27] MEDS: SPIRONOLACTONE 25 MG TAB PO SCH (08:39)
[2017-07-27] MEDS: FUROSEMIDE 20 MG TAB PO SCH (08:39)
[2017-07-27] MEDS: DOCUSATE SODIUM 50 MG/SENNA 8.6 MG TAB PO SCH ×2 (08:39→20:49)
[2017-07-27] MEDS: PANTOPRAZOLE SOD 20 MG DELAYED RELEASE TAB PO SCH (08:39)
[2017-07-27] MEDS: CARVEDILOL 6.25 MG TAB PO SCH ×2 (08:39→20:48)
[2017-07-27] MEDS: SODIUM CHLORIDE 0.9% FLUSH 10 ML FLUSH IV FLUSH SCH ×2 (08:40→20:49)
--- NOTE | 2017-07-27 11:48 | HHI.PR ---
Subjective Remarks Follow-up A. fib with RVR/transaminitis 07/25/17-patient seen and examined, currently rate control and no acute event overnight. However now with Dark stool 07/26/17-patient seen and examined, no acute event overnight, rate currently controlled. Denies any abdominal pain. 07/27/17-patient seen and examined, history of bradycardia this morning, patient is currently asymptomatic Objective Vitals Vital Signs Date Time Temp Pulse Resp B/P (MAP) Pulse Ox O2 Delivery O2 Flow Rate FiO2 07/27/17 11:40 95 Nasal Cannula 2.00 07/27/17 11:40 97.8 51 18 121/64 (83) 95 07/27/17 08:19 55 07/27/17 07:49 97 Nasal Cannula 2.00 07/27/17 07:49 97.9 55 18 148/72 (97) 97 07/27/17 06:00 62 07/27/17 05:00 63 07/27/17 04:00 61 07/27/17 04:00 98.2 61 20 154/81 (105) 99 07/27/17 04:00 Nasal Cannula 2.00 07/27/17 03:00 65 07/27/17 02:00 66 07/27/17 01:00 71 07/27/17 00:00 67 07/27/17 00:00 98.4 67 20 124/64 (84) 98 07/27/17 00:00 Nasal Cannula 2.00 07/26/17 23:00 68 07/26/17 22:00 66 07/26/17 21:00 75 07/26/17 20:00 70 07/26/17 20:00 98.1 70 20 105/67 (80) 97 07/26/17 20:00 Nasal Cannula 2.00 07/26/17 17:01 60 07/26/17 16:00 62 07/26/17 15:15 97.5 85 18 117/70 (86) 95 07/26/17 15:00 63 07/26/17 14:01 70 07/26/17 13:00 68 07/26/17 12:00 66 I/O 07/26/17 07/26/17 07/26/17 07/27/17 07/27/17 07/27/17 07:00 15:00 23:00 07:00 15:00 23:00 Intake Total 240 ml 960 ml 240 ml Output Total 700 ml 1200 ml 650 ml Balance -460 ml -240 ml -410 ml Intake Oral 240 ml 960 ml 240 ml Output Urine Total 700 ml 1200 ml 650 ml # Bowel Movements 1 2 1 Result Diagram: 07/26/17 1121 07/26/17 1121 Imaging Last Impressions Gall Bladder Ultrasound 07/24/17 0000 Signed Impressions: Service Date/Time: Monday, July 24, 2017 07:50 - CONCLUSION: 1. The examination demonstrates mild gallbladder wall thickening and sludge in the dependent portion of the gallbladder. No paracolic cystic fluid is evident. 2. Simple cyst identified within the right kidney. 3. No stones seen within the common duct. Maged Cobb MD Chest X-Ray 07/23/17 1906 Signed Impressions: Service Date/Time: July 19:12 - CONCLUSION: No evidence of acute cardiopulmonary disease. Luis Fernando Krishnamurthy MD Abdomen/Pelvis CT 07/23/17 0000 Signed Impressions: Service Date/Time: July 22:37 - CONCLUSION: 1. Mild gallbladder distention with some increased density in the dependent portion of the neck possibly representing small stones or sludge. No pericholecystic stranding, however. 2. Splenomegaly. 3. Probable 2.2 cm right adrenal adenoma, unchanged. 4. 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 5. Atherosclerotic calcification of the coronary arteries. 6. Tiny, bilateral pleural effusions with common atelectatic changes. Waldo Mcguire MD Objective Remarks GENERAL: NAD SKIN: Warm and dry. HEAD: Normocephalic. EYES: No scleral icterus. No injection or drainage. NECK: Supple, trachea midline. No JVD or lymphadenopathy. CARDIOVASCULAR: irreg Regular rate and rhythm without murmurs, gallops, or rubs. RESPIRATORY: Breath sounds equal bilaterally. No accessory muscle use. GASTROINTESTINAL: Abdomen soft, non-tender, nondistended. MUSCULOSKELETAL: No cyanosis, or edema. BACK: Nontender without obvious deformity. No CVA tenderness. A/P Problem List: (1) Atrial fibrillation with rapid ventricular response ICD Code: I48.91 - Unspecified atrial fibrillation Status: Acute (2) CKD (chronic kidney disease) ICD Code: N18.9 - Chronic kidney disease, unspecified Status: Acute (3) Transaminitis ICD Code: R74.0 - Nonspecific elevation of levels of transaminase and lactic acid dehydrogenase [LDH] Status: Acute Assessment and Plan 86-year-old man with 1. Atrial fibrillation with RVR Currently rates controlled on Digoxin and Coreg however patient currently with bradycardia. will Adjust Coreg Patient with history of atrial fibrillation although not on chronic anticoagulation likely secondary to frequent falls 2. Transaminitis Unclear etiology Hepatitis profile negative CT of the abdomen/pelvis significant for mild gallbladder distention with some increased density in the dependent portion of the neck Gallbladder ultrasound sludge positive LFTs trending down. CMP pending this a.m. 07/27/17 GI consultation appreciated pending final workup May consider HIDA scan vs MRCP 3. CHF/CAD Continue home medications 4. Diabetes mellitus Sliding scale insulin Monitor blood glucose 5. Hypertension/hyperlipidemia/GERD/hypothyroidism Continue home medications 6. Chronic kidney disease Stage III stable. 7. GI bleed-Resolved Hemoccult negative DVT prophylaxis with B-SCD; Hold heparin Problem Qualifiers (1) CKD (chronic kidney disease): Qualified Codes: N18.9 - Chronic kidney disease, unspecified Grant Mora MD Jul 27, 2017 11:48
--- NOTE | 2017-07-27 11:56 | HHI.GIFU ---
Subjective Remarks Pt resting in bed, napping. No complaints. (Carri Nolasco) Objective Vitals I&O Vital Signs Date Time Temp Pulse Resp B/P (MAP) Pulse Ox O2 Delivery O2 Flow Rate FiO2 07/27/17 11:40 95 Nasal Cannula 2.00 07/27/17 11:40 97.8 51 18 121/64 (83) 95 07/27/17 08:19 55 07/27/17 07:49 97 Nasal Cannula 2.00 07/27/17 07:49 97.9 55 18 148/72 (97) 97 07/27/17 06:00 62 07/27/17 05:00 63 07/27/17 04:00 61 07/27/17 04:00 98.2 61 20 154/81 (105) 99 07/27/17 04:00 Nasal Cannula 2.00 07/27/17 03:00 65 07/27/17 02:00 66 07/27/17 01:00 71 07/27/17 00:00 67 07/27/17 00:00 98.4 67 20 124/64 (84) 98 07/27/17 00:00 Nasal Cannula 2.00 07/26/17 23:00 68 07/26/17 22:00 66 07/26/17 21:00 75 07/26/17 20:00 70 07/26/17 20:00 98.1 70 20 105/67 (80) 97 07/26/17 20:00 Nasal Cannula 2.00 07/26/17 17:01 60 07/26/17 16:00 62 07/26/17 15:15 97.5 85 18 117/70 (86) 95 07/26/17 15:00 63 07/26/17 14:01 70 07/26/17 13:00 68 07/26/17 12:00 66 I/O 07/26/17 07/26/17 07/26/17 07/27/17 07/27/17 07/27/17 07:00 15:00 23:00 07:00 15:00 23:00 Intake Total 240 ml 960 ml 240 ml Output Total 700 ml 1200 ml 650 ml Balance -460 ml -240 ml -410 ml Intake Oral 240 ml 960 ml 240 ml Output Urine Total 700 ml 1200 ml 650 ml # Bowel Movements 1 2 1 Laboratory Laboratory Tests Test 07/27/17 10:39 Date/Time Source Procedure Growth Status 07/25/17 10:38 Stool Stool Stool Occult Blood (KELSI) - Final HEMOCCULT NEGATIVE Complete Imaging Last Impressions Gall Bladder Ultrasound 07/24/17 0000 Signed Impressions: Service Date/Time: Monday, July 24, 2017 07:50 - CONCLUSION: 1. The examination demonstrates mild gallbladder wall thickening and sludge in the dependent portion of the gallbladder. No paracolic cystic fluid is evident. 2. Simple cyst identified within the right kidney. 3. No stones seen within the common duct. Maged Cobb MD Chest X-Ray 07/23/17 1906 Signed Impressions: Service Date/Time: July 19:12 - CONCLUSION: No evidence of acute cardiopulmonary disease. Luis Fernando Krishnamurthy MD Abdomen/Pelvis CT 07/23/17 0000 Signed Impressions: Service Date/Time: July 22:37 - CONCLUSION: 1. Mild gallbladder distention with some increased density in the dependent portion of the neck possibly representing small stones or sludge. No pericholecystic stranding, however. 2. Splenomegaly. 3. Probable 2.2 cm right adrenal adenoma, unchanged. 4. 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 5. Atherosclerotic calcification of the coronary arteries. 6. Tiny, bilateral pleural effusions with common atelectatic changes. Waldo Mcguire MD Physical Exam HEENT: PERRL; normocephalic; atraumatic; no jaundice. CHEST: CTA CARDIAC: irr HR ABDOMEN: Soft, nondistended, RUQ TTP; no hepatosplenomegaly; bowel sounds are present in all four quadrants. EXTREMITIES: No clubbing, cyanosis, or edema. SKIN: Normal; no rash; no jaundice. MANAGER SUPPLY: lethargic (Carri Nolasco SMART ENERGY SPECIALIST) Assessment and Plan Plan ASSESSMENT - elevated LFTs - TBIL 3.0, AST 459, ALT 257, ALP 219 on admission. tbil has increased, other LFTs trending down. CT showed GB distention, poss stones or sludge in GB neck. US showed gb wall thickenign and sludge in dependent portion gallbladder. neg for hepatitis. could be congestive vs gallbladder etiology. will get liver w/u r/o other cause elev liver chemistries. tolerating heart healthy diet 07/27/17 no complaints but is tender in RUQ on exam. toelrating diet. hep neg. rest of liver w/u pending. PLAN - HIDA - await liver w/u - diet per attending - supportive care - further recs to follow pt seen by myself and Dr Cortes and myself and this note is on her behalf (Carri Nolasco) Physician Comments seen, examined agree with above hida scan general surgery consult based on hida result history of multiple colonic polyps-unclear if he had a fu colonoscopy or not- if not done will need to have one-can be done op (Leeann Cortes MD) Carri Nolasco Jul 27, 2017 11:56 Leeann Cortes MD Jul 27, 2017 12:48
[2017-07-27 12:00] LABS: ALBUMIN 3.2 GM/DL (3.4-5.0); AST (GOT) 59 U/L (15-37); BICARBONATE 27.5 MEQ/L (21.0-32.0); BLOOD UREA NITROGEN 33 MG/DL (7-18); CALCIUM 9.3 MG/DL (8.5-10.1); CHLORIDE 100 MEQ/L (98-107); CREATININE 1.61 MG/DL (0.60-1.30); GLOMERULAR FILTRATION RATE 41 ML/MIN (>89); GLUCOSE,RANDOM 99 MG/DL (74-106); SODIUM (NA) 137 MEQ/L (136-145)
[2017-07-27 12:01] LABS: ALT (GPT) 136 U/L (12-78); IRON (FE) 82 MCG/DL (65-175)
[2017-07-27 12:03] LABS: ALKALINE PHOSPHATASE 176 U/L (45-117); TOTAL BILIRUBIN ADULT 2.1 MG/DL (0.2-1.0); TOTAL PROTEIN 6.8 GM/DL (6.4-8.2)
[2017-07-27 12:04] LABS: % SATURATION IRON PROFILE 36.6 % (20-50); FERRITIN 431 NG/ML (26-388); TOTAL IRON BINDING CAPACITY 224 MCG/DL (250-450)
--- NOTE | 2017-07-27 16:00 | RADRPT ---
EXAM DATE/TIME: 07/27/2017 13:38 This report includes an Addendum and supersedes previous reports for this exam. [facility] COMPARISON: CT ABDOMEN & PELVIS W CONTRAST, July 23, 2017, 22:37. INDICATIONS : Abdominal pain with nausea. DOSE: 4 mCi Tc99m Mebrofenin IV MEDICAL HISTORY : Hypertension. Myocardial infarction. SURGICAL HISTORY : Appendectomy. Inguinal hernia repair. ENCOUNTER: Initial ACUITY: 3 days PAIN SCALE: 3/10 LOCATION: Right upper quadrant TECHNIQUE: Following the intravenous administration of radiotracer, dynamic sequential images wer e performed with continuous acquisition. FINDINGS: HEPATIC KINETICS: There is prompt uptake of radiotracer in the liver. No focal defects are seen. There is normal rate of washout from the hepatic parenchyma. BILIARY CLEARANCE: Activity is first seen in the extrahepatic biliary system at 10 minutes. Ther e is normal excretion into the small bowel. GALLBLADDER: No definite activity is demonstrated in the gallbladder. BILIARY ENTRIC REFLUX: None observed. CONCLUSION: 1. Nonvisualization of the gallbladder concerning for occlusion of the cystic duct. Delayed scanning will be performed for confirmation. 2. Patent common bile duct with normal biliary to bowel transit time. Daryn Haque MD on July 27, 2017 at 15:49 Board Certified Radiologist. This report was verified electronically. ADDENDUM: 24-hour delayed images are now available. No delayed filling of the gallbladder. In the appropriate c linical setting, findings could be characteristic of acute cholecystitis. Waldo Mcguire MD on July 28, 2017 at 9:57 Board Certified Radiologist. This report was verified electronically.
[2017-07-27] MEDS: SERTRALINE HCL 100 MG TAB PO SCH (20:48)
[2017-07-27] MEDS: MELATONIN 5 MG TAB PO SCH (20:48)
[2017-07-27] MEDS: TERAZOSIN HCL 1 MG CAP PO SCH (20:49)
[2017-07-27] MEDS: ACETAMINOPHEN 325 MG TAB PO PRN (20:49)
[2017-07-28] VITALS (10 sets, daily range): BP systolic 111–132; BP diastolic 56–87; PULSE 60–79; RESP 12–20; TEMP 97–98.2; O2SAT 98–100
[2017-07-28] MEDS: LEVOTHYROXINE SODIUM 125 MCG TAB PO SCH (05:17)
[2017-07-28 07:51] LABS: ALKALINE PHOSPHATASE 150 U/L (45-117); TOTAL PROTEIN 6.4 GM/DL (6.4-8.2)
[2017-07-28 07:54] LABS: ALBUMIN 2.8 GM/DL (3.4-5.0); ALT (GPT) 115 U/L (12-78); AST (GOT) 65 U/L (15-37); BLOOD UREA NITROGEN 30 MG/DL (7-18); CALCIUM 8.8 MG/DL (8.5-10.1); CHLORIDE 100 MEQ/L (98-107); CREATININE 1.42 MG/DL (0.60-1.30); GLOMERULAR FILTRATION RATE 47 ML/MIN (>89); GLUCOSE,RANDOM 77 MG/DL (74-106); SODIUM (NA) 136 MEQ/L (136-145)
[2017-07-28] MEDS: INSULIN ASPART SUPPLEMENTAL SCALE SQ SCH ×4 (08:00→21:00)
[2017-07-28] MEDS: CARVEDILOL 6.25 MG TAB PO SCH ×2 (09:16→21:27)
[2017-07-28] MEDS: SPIRONOLACTONE 25 MG TAB PO SCH (09:16)
[2017-07-28] MEDS: DIGOXIN 0.125 MG TAB PO SCH (09:16)
[2017-07-28] MEDS: PANTOPRAZOLE SOD 20 MG DELAYED RELEASE TAB PO SCH (09:16)
[2017-07-28] MEDS: FUROSEMIDE 20 MG TAB PO SCH (09:16)
[2017-07-28] MEDS: DOCUSATE SODIUM 50 MG/SENNA 8.6 MG TAB PO SCH ×2 (09:16→21:27)
[2017-07-28] MEDS: SODIUM CHLORIDE 0.9% FLUSH 10 ML FLUSH IV FLUSH SCH ×2 (09:17→21:28)
--- NOTE | 2017-07-28 10:09 | HHI.PR ---
Subjective Remarks telemetry- a fib- rate controlled patient awake and alert, no complains of nausea or vomiting states baseline- bed bound but states "tender there" when rught upper quadrant examined Objective Vitals Vital Signs Date Time Temp Pulse Resp B/P (MAP) Pulse Ox O2 Delivery O2 Flow Rate FiO2 07/28/17 08:00 97.2 69 20 111/56 (74) 100 07/28/17 08:00 71 07/28/17 04:45 97.0 79 18 132/62 (85) 99 07/28/17 03:42 68 07/28/17 00:15 97.2 60 18 123/68 (86) 100 07/27/17 23:41 61 07/27/17 22:13 69 07/27/17 21:51 97.2 60 18 108/64 (79) 100 07/27/17 21:45 Nasal Cannula 2.00 07/27/17 20:00 98.5 73 16 127/60 (82) 100 07/27/17 20:00 58 07/27/17 16:38 61 07/27/17 16:36 97.8 62 18 155/65 (95) 100 07/27/17 12:52 60 07/27/17 11:40 95 Nasal Cannula 2.00 07/27/17 11:40 97.8 51 18 121/64 (83) 95 I/O 07/27/17 07/27/17 07/27/17 07/28/17 07/28/17 07/28/17 07:00 15:00 23:00 07:00 15:00 23:00 Intake Total 240 ml 420 ml Output Total 650 ml 200 ml Balance -410 ml 220 ml Intake Oral 240 ml 420 ml Output Urine Total 650 ml 200 ml # Voids 2 3 # Bowel Movements 1 1 1 Result Diagram: 07/26/17 1121 07/28/17 0632 Imaging Last Impressions Hepatobiliary Scan Nuclear Medicine 07/27/17 0000 Signed Impressions: Service Date/Time: Thursday, July 27, 2017 13:38 - CONCLUSION: 1. Nonvisualization of the gallbladder concerning for occlusion of the cystic duct. Delayed scanning will be performed for confirmation. 2. Patent common bile duct with normal biliary to bowel transit time. Daryn Haque MD ADDENDUM: 24-hour delayed images are now available. No delayed filling of the gallbladder. In the appropriate clinical setting, findings could be characteristic of acute cholecystitis. Waldo Mcguire MD Gall Bladder Ultrasound 07/24/17 0000 Signed Impressions: Service Date/Time: Monday, July 24, 2017 07:50 - CONCLUSION: 1. The examination demonstrates mild gallbladder wall thickening and sludge in the dependent portion of the gallbladder. No paracolic cystic fluid is evident. 2. Simple cyst identified within the right kidney. 3. No stones seen within the common duct. Maged Cobb MD Chest X-Ray 07/23/17 190 Signed Impressions: Service Date/Time: July 19:12 - CONCLUSION: No evidence of acute cardiopulmonary disease. Luis Fernando Krishnamurthy MD Abdomen/Pelvis CT 07/23/17 0000 Signed Impressions: Service Date/Time: July 22:37 - CONCLUSION: 1. Mild gallbladder distention with some increased density in the dependent portion of the neck possibly representing small stones or sludge. No pericholecystic stranding, however. 2. Splenomegaly. 3. Probable 2.2 cm right adrenal adenoma, unchanged. 4. 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 5. Atherosclerotic calcification of the coronary arteries. 6. Tiny, bilateral pleural effusions with common atelectatic changes. Waldo Mcguire MD Objective Remarks awake and alert, no acute distress anciteric lungs- no rales, no wheezes irregularly irregular rhythm abdomen-soft, good bowel sounds, tender right upper quadrant with deep palpation extremities no edema A/P Problem List: (1) Atrial fibrillation with rapid ventricular response ICD Code: I48.91 - Unspecified atrial fibrillation Status: Acute (2) CKD (chronic kidney disease) ICD Code: N18.9 - Chronic kidney disease, unspecified Status: Acute (3) Transaminitis ICD Code: R74.0 - Nonspecific elevation of levels of transaminase and lactic acid dehydrogenase [LDH] Status: Acute Assessment and Plan 86-year-old man with Atrial fibrillation with RVR- now rate controlled CHF/CAD/Hypertension Continue home medications CAILIN 4 Currently rates controlled on Digoxin and Coreg however patient currently with bradycardia. will Adjust Coreg Patient with history of atrial fibrillation although not on chronic anticoagulation due ? thrombocytopenia get a 2D echo- check EF consider starting OAC- but with thrombocytopenia- and hold for possible surgery get cardiology consult for recommendations and cardiology clearance -if GS plans for surgery Thrombocytopenia- ? chronic Hold Lovenox for now consult Hematology for recommendations Transaminitis- trending down Acute cholecystitis on HIDA Hepatitis profile negative CT of the abdomen/pelvis significant for mild gallbladder distention with some increased density in the dependent portion of the neck Gallbladder ultrasound sludge positive LFTs trending down. GI ff general surgery consult baseline functional status- bedbound ? get PT GERD/hypothyroidism Continue home medications Diabetes mellitus Sliding scale insulin Monitor blood glucose Chronic kidney disease Stage III stable. GI bleed-Resolved Hemoccult negative DVT prophylaxis with B-SCD; Problem Qualifiers (1) CKD (chronic kidney disease): Qualified Codes: N18.9 - Chronic kidney disease, unspecified Amaury Green MD Jul 28, 2017 10:09
[2017-07-28] MEDS ORDERED: ENOXAPARIN SODIUM 100 MG/ML SYRINGE SQ ONE (11:00)
--- NOTE | 2017-07-28 12:15 | MB ---
cc: Marcelino Gilmore MD DATE OF CONSULT: INDICATION: Preoperative clearance, history of atrial fibrillation. HISTORY OF PRESENT ILLNESS: This is an 86-year-old gentleman. He is not a great historian, but he does have a past medical history apparently for congestive heart failure, hypertension, hyperlipidemia, type 2 diabetes, coronary artery disease with 4 prior heart attacks and atrial fibrillation. He is not felt to be a good anticoagulation candidate due to fall risk, currently [facility] a [facility], came in with nausea, vomiting and decreased p.o. intake. He is noted to be in atrial fibrillation with rapid ventricular response, but over the course of the past few days during the hospitalization, he has been well rate controlled. He had elevated liver function tests and ultimately underwent gallbladder ultrasound, followed by a HIDA scan, which suggested acute cholecystitis. We were consulted for further recommendation and consideration for preoperative clearance, although general surgery has not seen him to my knowledge, and there are no notes in the chart. PAST MEDICAL HISTORY: Apparently, congestive heart failure, hypertension, hyperlipidemia, diabetes, chronic kidney disease, coronary disease, atrial fibrillation, GERD, myocardial infarction. CURRENT MEDICATIONS: See med reconciliation. ALLERGIES: NO KNOWN DRUG ALLERGIES. FAMILY HISTORY: Denies any family history of early coronary disease or sudden cardiac . SOCIAL HISTORY: Denies alcohol, tobacco or drug use. REVIEW OF SYSTEMS: A 12-point review of systems was performed, negative unless otherwise noted in history of present illness. PHYSICAL EXAMINATION: Temp is 97, pulse 69, blood pressure 111/56 mmHg. GENERAL: Alert and oriented x 3, no acute distress. HEENT: Shows pupils reactive to light and accommodation. Extraocular movements are intact. No elevation of jugular venous distention. No thyromegaly. No lymphadenopathy. No carotid bruits. LUNGS: Clear to auscultation bilaterally. CARDIOVASCULAR: Regular rate and rhythm without murmurs, rubs or gallops. ABDOMEN: Soft, nontender, nondistended. Good bowel sounds. No hepatosplenomegaly. EXTREMITIES: Show no clubbing, cyanosis or edema. Good peripheral pulses. NEUROLOGIC: Cranial nerves intact. Motor, sensory grossly intact. LABORATORIES: WBC 4.8, hemoglobin is 12.8, platelet count 74. INR is 1.1. Sodium 136, potassium 4.5. BUN is 30. Creatinine is 1.42, down from 1.61. AST is now down to 65. ALT is 115. Albumin is 2.8. Electrocardiogram shows atrial fibrillation with nonspecific ST-T wave changes. ASSESSMENT: 1. Atrial fibrillation. 2. History of coronary disease. 3. History of congestive heart failure. 4. Preoperative clearance. PLAN: The patient is a fairly poor historian but does deny any recent symptoms of chest pain or shortness of breath. We will get a 2-D echocardiogram to evaluate for overall left ventricular systolic function and valvular heart disease. He is currently in atrial fibrillation but well rate controlled. Continue current medical regimen. Not a good anticoagulation candidate but would consider aspirin 325 mg postoperatively. From a cardiac clearance perspective, appears to generate 4 METS at the [facility], would clear him for surgery without need for Lexiscan. He does have a history of myocardial infarction but no recent symptoms. He is on digoxin and Lasix and Aldactone from a cardiac perspective. We will follow up on a 2-D echocardiogram. MD SEAN Ramos/ARLEY , 11:55 AM , 12:14 PM
[2017-07-28 13:06] LABS: ALPHA-1-ANTITRYPSIN 232 mg/dL (100 - 190)
[2017-07-28 13:53] LABS: SMOOTH MUSCLE TOTAL AUTOABS Negative (Negative)
--- NOTE | 2017-07-28 13:56 | PD.CONS ---
cc: Reina Wilkins MD [facility] Service General Surgery Consult Requested By Dr. Cortes Reason for Consult Acute cholecystitis Primary Care Physician [facility] History of Present Illness This is a 86 year old male with a past medical history of CHF, hypertension, dyslipidemia, chronic kidney insufficiency, CAD, atrial fibrillation, GERD and hypothyroidism. He came to the ED on July 27 with complaints of chest pain at his [facility] facility. He reports several episodes of emesis. He was found to be in atrial fibrillation with RVR with a rate of about 120 by EVAC. He was started on oral medications for rate control. The patient complained of RUQ abdominal pain and tenderness with palpation. A CT abdomen/pelvis was obtained and showed gallbladder distension. A gallbladder ultrasound was obtained and showed mild gallbladder wall thickening and sludge without common bile duct stones. A HIDA scan was obtained last night that showed nonvisualization of the gallbladder, a patent common bile duct with delayed images concerning for acte cholecystitis. He has been able to tolerate a regular diet without any issues except that his mouth has several sores in it making it somewhat difficult to eat. A General Surgery consultation has been requested. Review of Systems Constitutional: DENIES: Fatigue, Change in appetite Endocrine: DENIES: Polydipsia, Polyuria, Polyphagia Eyes: DENIES: Diplopia, Eye inflammation Ears, nose, mouth, throat: DENIES: Hearing loss Respiratory: DENIES: Apneas Cardiovascular: COMPLAINS OF: Chest pain, DENIES: Dyspnea on Exertion Gastrointestinal: COMPLAINS OF: Abdominal pain, Nausea, Vomiting Genitourinary: DENIES: Hematuria Musculoskeletal: DENIES: Joint pain Integumentary: DENIES: Abnormal pigmentation Hematologic/lymphatic: DENIES: Bruising Immunologic/allergic: DENIES: Eczema Neurologic: DENIES: Abnormal gait, Headache Psychiatric: DENIES: Confusion, Mood changes, Depression Past Family Social History Past Medical History CHF Hypertension Dyslipidemia Chronic kidney insufficiency CAD Atrial fibrillation GERD Hypothyroidism Past Surgical History Open appendectomy as a young adult Reported Medications See chart--- list is extensive--- the patient is not on any blood thinning medications Allergies: Coded Allergies: No Known Allergies (Verified Allergy, Unknown, 07/23/17) Active Ordered Medications Current Medications Medications (Trade) Dose Ordered Sig/Inge Route Start Time Stop Time Status Last Admin (Coreg) 6.25 mg BID PO 07/24/17 09:00 07/28/17 09:16 (Lanoxin) 0.125 mg EVERY OTHER DAY PO 07/24/17 09:00 07/28/17 09:16 (Lasix) 20 mg DAILY PO 07/24/17 09:00 07/28/17 09:16 (Synthroid) 125 mcg DAILY@0700 PO 07/24/17 07:00 07/28/17 05:17 (Melatonin) 5 mg HS PO 07/24/17 21:00 07/27/17 20:48 (Zoloft) 100 mg HS PO 07/24/17 21:00 07/27/17 20:48 (Aldactone) 25 mg DAILY PO 07/24/17 09:00 07/28/17 09:16 (Hytrin) 2 mg HS PO 07/24/17 21:00 07/27/17 20:49 (Protonix) 20 mg DAILY PO 07/24/17 09:00 07/28/17 09:16 (NS Flush) 2 ml UNSCH PRN IV FLUSH 07/24/17 02:00 (NS Flush) 2 ml BID IV FLUSH 07/24/17 09:00 07/28/17 09:17 (Tylenol) 650 mg Q4H PRN PO 07/24/17 02:00 07/27/17 20:49 (Zofran Inj) 4 mg Q6H PRN IVP 07/24/17 02:00 (Heparin Inj) 5,000 units Q8H SQ 07/24/17 02:00 Future Hold 07/25/17 02:18 (Narcan Inj) 0.4 mg UNSCH PRN IV PUSH 07/24/17 02:00 (Kaylen-Colace) 1 tab BID PO 07/24/17 09:00 07/28/17 09:16 (Milk Of Magnesia Liq) 30 ml Q12H PRN PO 07/24/17 02:00 (Senokot) 17.2 mg Q12H PRN PO 07/24/17 02:00 (Dulcolax Supp) 10 mg DAILY PRN RECTAL 07/24/17 02:00 (Lactulose Liq) 30 ml DAILY PRN PO 07/24/17 02:00 (D50w (Vial) Inj) 50 ml UNSCH PRN IV PUSH 07/24/17 04:00 (Glucagon Inj) 1 mg UNSCH PRN OTHER 07/24/17 04:00 (NovoLOG SUPPLEMENTAL SCALE) 1 ACHS SLIDING SCALE SQ 07/24/17 08:00 Family History Non contributory Social History Denies tobacco use Denies ETOH use Resides in Nursing Facility Physical Exam Vital Signs Vital Signs Date Time Temp Pulse Resp B/P (MAP) Pulse Ox O2 Delivery O2 Flow Rate FiO2 07/28/17 12:00 Nasal Cannula 2.00 07/28/17 12:00 97.8 76 20 127/63 (84) 100 07/28/17 08:00 97.2 69 20 111/56 (74) 100 07/28/17 08:00 71 07/28/17 08:00 Nasal Cannula 2.00 07/28/17 04:45 97.0 79 18 132/62 (85) 99 07/28/17 03:42 68 07/28/17 00:15 97.2 60 18 123/68 (86) 100 07/27/17 23:41 61 07/27/17 22:13 69 07/27/17 21:51 97.2 60 18 108/64 (79) 100 07/27/17 21:45 Nasal Cannula 2.00 07/27/17 20:00 98.5 73 16 127/60 (82) 100 07/27/17 20:00 58 07/27/17 16:38 61 07/27/17 16:36 97.8 62 18 155/65 (95) 100 Physical Exam GENERAL: 86 year old male resting in bed in no acute distress. SKIN: Warm and dry. Several superficial abrasions on BUE. HEAD: Atraumatic. Normocephalic. EYES: Pupils equal and round. No scleral icterus. No injection or drainage. ENT: No nasal bleeding or discharge. Mucous membranes pink and moist. NECK: Trachea midline. CARDIOVASCULAR: Regular rate; atrial fib RESPIRATORY: No accessory muscle use. Clear to auscultation. Breath sounds equal bilaterally. GASTROINTESTINAL: Abdomen soft, nondistended. RUQ tenderness with palpation. Well healed RLQ scar. MUSCULOSKELETAL: Extremities without clubbing, cyanosis, or edema. No obvious deformities. NEUROLOGICAL: Awake and alert. No obvious cranial nerve deficits. Motor grossly within normal limits. Five out of 5 muscle strength in the arms and legs. Normal speech. PSYCHIATRIC: Appropriate mood and affect; insight and judgment normal. Laboratory Laboratory Tests Test 07/28/17 06:32 Blood Urea Nitrogen 30 Creatinine 1.42 Random Glucose 77 Total Protein 6.4 Albumin 2.8 Calcium Level 8.8 Alkaline Phosphatase 150 Aspartate Amino Transf (AST/SGOT) 65 Alanine Aminotransferase (ALT/SGPT) 115 Total Bilirubin 2.0 Sodium Level 136 Potassium Level 4.5 Chloride Level 100 Carbon Dioxide Level 27.0 Anion Gap 9 Estimat Glomerular Filtration Rate 47 Date/Time Source Procedure Growth Status 07/25/17 10:38 Stool Stool Stool Occult Blood (KELSI) - Final HEMOCCULT NEGATIVE Complete Result Diagram: 07/26/17 1121 07/28/17 0632 Imaging Last 48 hours Impressions Hepatobiliary Scan Nuclear Medicine 07/27/17 0000 Signed Impressions: Service Date/Time: Thursday, July 27, 2017 13:38 - CONCLUSION: 1. Nonvisualization of the gallbladder concerning for occlusion of the cystic duct. Delayed scanning will be performed for confirmation. 2. Patent common bile duct with normal biliary to bowel transit time. Daryn Haque MD ADDENDUM: 24-hour delayed images are now available. No delayed filling of the gallbladder. In the appropriate clinical setting, findings could be characteristic of acute cholecystitis. Waldo Mcguire MD Assessment and Plan Assessment and Plan 86 year old male with chest pain; atrial fibrillation not on chronic OAC; thrombocytopenia; RUQ pain -Tolerating regular diet -Started Zosyn -Will attempt treatment with antibiotics -If starts to spike fevers or increase in pain will either do cholecystostomy tube vs lap ravi -Will also need Cardiology clearance -Thank you for this consult; We will continue to follow SEEN WITH DOG HANDLER OR TRAINER WHO DOCUMENTED OUR VISIT. LIKELY HAD ACUTE CHOLECYSTITIS ON PRESENTATION. HAS IMPROVED WITH MEDICAL MANAGEMENT. ESSENTIALLY ASYMPTOMATIC NOW. NOT A GOOD SURGICAL CANDIDATE. WILL OBSERVE FOR NOW. IF HE WORSEN WILL CONSIDER SURGERY OR CHOLECYSTOSTOMY TUBE. REINA WILKINS MD FACS Discussed Condition With Dr. Wilkins Mr. and Jeri Sauceda DOG HANDLER OR TRAINER/Follow Up Manager DOG HANDLER OR TRAINER Jul 28, 2017 13:56 Reina Wilkins MD Aug 02, 2017 12:00
--- NOTE | 2017-07-28 14:06 | HHI.GIFU ---
Subjective Remarks Pt resting in bed. no complaints but he is tender on exam. (Carri Nolasco) Objective Vitals I&O Vital Signs Date Time Temp Pulse Resp B/P (MAP) Pulse Ox O2 Delivery O2 Flow Rate FiO2 07/28/17 12:00 Nasal Cannula 2.00 07/28/17 12:00 97.8 76 20 127/63 (84) 100 07/28/17 08:00 97.2 69 20 111/56 (74) 100 07/28/17 08:00 71 07/28/17 08:00 Nasal Cannula 2.00 07/28/17 04:45 97.0 79 18 132/62 (85) 99 07/28/17 03:42 68 07/28/17 00:15 97.2 60 18 123/68 (86) 100 07/27/17 23:41 61 07/27/17 22:13 69 07/27/17 21:51 97.2 60 18 108/64 (79) 100 07/27/17 21:45 Nasal Cannula 2.00 07/27/17 20:00 98.5 73 16 127/60 (82) 100 07/27/17 20:00 58 07/27/17 16:38 61 07/27/17 16:36 97.8 62 18 155/65 (95) 100 I/O 07/27/17 07/27/17 07/27/17 07/28/17 07/28/17 07/28/17 07:00 15:00 23:00 07:00 15:00 23:00 Intake Total 240 ml 420 ml Output Total 650 ml 200 ml Balance -410 ml 220 ml Intake Oral 240 ml 420 ml Output Urine Total 650 ml 200 ml # Voids 2 3 # Bowel Movements 1 1 1 Laboratory Laboratory Tests Test 07/28/17 06:32 Blood Urea Nitrogen 30 Creatinine 1.42 Random Glucose 77 Total Protein 6.4 Albumin 2.8 Calcium Level 8.8 Alkaline Phosphatase 150 Aspartate Amino Transf (AST/SGOT) 65 Alanine Aminotransferase (ALT/SGPT) 115 Total Bilirubin 2.0 Sodium Level 136 Potassium Level 4.5 Chloride Level 100 Carbon Dioxide Level 27.0 Anion Gap 9 Estimat Glomerular Filtration Rate 47 Date/Time Source Procedure Growth Status 07/25/17 10:38 Stool Stool Stool Occult Blood (KELSI) - Final HEMOCCULT NEGATIVE Complete Imaging Last Impressions Hepatobiliary Scan Nuclear Medicine 07/27/17 0000 Signed Impressions: Service Date/Time: Thursday, July 27, 2017 13:38 - CONCLUSION: 1. Nonvisualization of the gallbladder concerning for occlusion of the cystic duct. Delayed scanning will be performed for confirmation. 2. Patent common bile duct with normal biliary to bowel transit time. Daryn Haque MD ADDENDUM: 24-hour delayed images are now available. No delayed filling of the gallbladder. In the appropriate clinical setting, findings could be characteristic of acute cholecystitis. Waldo Mcguire MD Gall Bladder Ultrasound 07/24/17 0000 Signed Impressions: Service Date/Time: Monday, July 24, 2017 07:50 - CONCLUSION: 1. The examination demonstrates mild gallbladder wall thickening and sludge in the dependent portion of the gallbladder. No paracolic cystic fluid is evident. 2. Simple cyst identified within the right kidney. 3. No stones seen within the common duct. Maged Cobb MD Chest X-Ray 07/23/17 1906 Signed Impressions: Service Date/Time: July 19:12 - CONCLUSION: No evidence of acute cardiopulmonary disease. Luis Fernando Krishnamurthy MD Abdomen/Pelvis CT 07/23/17 0000 Signed Impressions: Service Date/Time: July 22:37 - CONCLUSION: 1. Mild gallbladder distention with some increased density in the dependent portion of the neck possibly representing small stones or sludge. No pericholecystic stranding, however. 2. Splenomegaly. 3. Probable 2.2 cm right adrenal adenoma, unchanged. 4. 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 5. Atherosclerotic calcification of the coronary arteries. 6. Tiny, bilateral pleural effusions with common atelectatic changes. Waldo Mcguire MD Physical Exam HEENT: PERRL; normocephalic; atraumatic; no jaundice. CHEST: CTA CARDIAC: irr HR ABDOMEN: Soft, nondistended, upper quadrant TTP; no hepatosplenomegaly; bowel sounds are present in all four quadrants. EXTREMITIES: No clubbing, cyanosis, or edema. SKIN: Normal; no rash; no jaundice. TRAVELIFT OPERATOR: mildly confused (Carri Nolasco JOINT CLEANING MACHINE OPERATOR) Assessment and Plan Plan ASSESSMENT - elevated LFTs - TBIL 3.0, AST 459, ALT 257, ALP 219 on admission. tbil has increased, other LFTs trending down. CT showed GB distention, poss stones or sludge in GB neck. US showed gb wall thickenign and sludge in dependent portion gallbladder. neg for hepatitis. could be congestive vs gallbladder etiology. will get liver w/u r/o other cause elev liver chemistries. tolerating heart healthy diet 07/27/17 no complaints but is tender in RUQ on exam. toelrating diet. hep neg. rest of liver w/u pending. 07/28/17 - HIDA suggestive cholecystitis. pt with no GI complaints but is tender in RUQ. GS consult pending. liver w/u so far unremarkable PLAN - await GS eval - await liver w/u - diet per attending - supportive care - outpt colonoscopy pt seen by myself and Dr Cortes and myself and this note is on her behalf (Carri Nolasco) Carri Nolasco Jul 28, 2017 14:05 Leeann Cortes MD Jul 28, 2017 16:16
[2017-07-28] MEDS: PIPERACIL-TAZO 3.375 GM PREMIX 50 ML IV SCH ×2 (16:21→22:51)
[2017-07-28] MEDS: MELATONIN 5 MG TAB PO SCH (21:27)
[2017-07-28] MEDS: TERAZOSIN HCL 1 MG CAP PO SCH (21:27)
[2017-07-28] MEDS: SERTRALINE HCL 100 MG TAB PO SCH (21:28)
[2017-07-28] MEDS: ACETAMINOPHEN 325 MG TAB PO PRN (21:34)
[2017-07-28] MEDS: SODIUM CHLORIDE 0.9% FLUSH 10 ML FLUSH IV FLUSH PRN (22:53)
[2017-07-29] VITALS (10 sets, daily range): BP systolic 120–138; BP diastolic 60–71; PULSE 62–83; RESP 17–20; TEMP 97.3–98.4; O2SAT 98–100
[2017-07-29] MEDS: LEVOTHYROXINE SODIUM 125 MCG TAB PO SCH (06:02)
[2017-07-29] MEDS: PIPERACIL-TAZO 3.375 GM PREMIX 50 ML IV SCH ×3 (06:02→23:57)
[2017-07-29] MEDS: SODIUM CHLORIDE 0.9% FLUSH 10 ML FLUSH IV FLUSH PRN (06:04)
[2017-07-29] MEDS: INSULIN ASPART SUPPLEMENTAL SCALE SQ SCH ×4 (08:00→21:00)
--- NOTE | 2017-07-29 08:24 | PD.CARD.PN ---
Subjective Subjective Remarks resting comfortably. denies chest pain or sob (Adela Acharya) Objective Medications Current Medications Medications (Trade) Dose Ordered Sig/Inge Route Start Time Stop Time Status Last Admin (Coreg) 6.25 mg BID PO 07/24/17 09:00 07/28/17 21:27 (Lanoxin) 0.125 mg EVERY OTHER DAY PO 07/24/17 09:00 07/28/17 09:16 (Lasix) 20 mg DAILY PO 07/24/17 09:00 07/28/17 09:16 (Synthroid) 125 mcg DAILY@0700 PO 07/24/17 07:00 07/29/17 06:02 (Melatonin) 5 mg HS PO 07/24/17 21:00 07/28/17 21:27 (Zoloft) 100 mg HS PO 07/24/17 21:00 07/28/17 21:28 (Aldactone) 25 mg DAILY PO 07/24/17 09:00 07/28/17 09:16 (Hytrin) 2 mg HS PO 07/24/17 21:00 07/28/17 21:27 (Protonix) 20 mg DAILY PO 07/24/17 09:00 07/28/17 09:16 (NS Flush) 2 ml UNSCH PRN IV FLUSH 07/24/17 02:00 07/29/17 06:04 (NS Flush) 2 ml BID IV FLUSH 07/24/17 09:00 07/28/17 21:28 (Tylenol) 650 mg Q4H PRN PO 07/24/17 02:00 07/28/17 21:34 (Zofran Inj) 4 mg Q6H PRN IVP 07/24/17 02:00 (Heparin Inj) 5,000 units Q8H SQ 07/24/17 02:00 Future Hold 07/25/17 02:18 (Narcan Inj) 0.4 mg UNSCH PRN IV PUSH 07/24/17 02:00 (Kaylen-Colace) 1 tab BID PO 07/24/17 09:00 07/28/17 21:27 (Milk Of Magnesia Liq) 30 ml Q12H PRN PO 07/24/17 02:00 (Senokot) 17.2 mg Q12H PRN PO 07/24/17 02:00 (Dulcolax Supp) 10 mg DAILY PRN RECTAL 07/24/17 02:00 (Lactulose Liq) 30 ml DAILY PRN PO 07/24/17 02:00 (D50w (Vial) Inj) 50 ml UNSCH PRN IV PUSH 07/24/17 04:00 (Glucagon Inj) 1 mg UNSCH PRN OTHER 07/24/17 04:00 (NovoLOG SUPPLEMENTAL SCALE) 1 ACHS SLIDING SCALE SQ 07/24/17 08:00 Piperacillin Sod/ Tazobactam Sod 50 ml @ 100 mls/hr Q8H IV 07/28/17 15:00 07/29/17 06:02 Vital Signs / I&O Vital Signs Date Time Temp Pulse Resp B/P (MAP) Pulse Ox O2 Delivery O2 Flow Rate FiO2 07/29/17 04:03 81 07/29/17 04:00 98.0 72 18 138/60 (86) 98 07/29/17 00:00 98.2 75 18 121/66 (84) 98 07/28/17 23:43 75 07/28/17 20:00 98.2 69 18 132/87 (102) 99 07/28/17 20:00 Nasal Cannula 2.00 07/28/17 19:40 69 07/28/17 16:00 Nasal Cannula 2.00 07/28/17 16:00 70 07/28/17 15:30 97.1 65 15 131/63 (85) 98 07/28/17 12:00 Nasal Cannula 2.00 07/28/17 12:00 63 07/28/17 12:00 97.8 76 20 127/63 (84) 100 I/O 07/28/17 07/28/17 07/28/17 07/29/17 07/29/17 07/29/17 07:00 15:00 23:00 07:00 15:00 23:00 Output Total 500 ml Balance -500 ml Output Urine Total 500 ml # Voids 3 # Bowel Movements 1 Physical Exam GENERAL: SKIN: Warm and dry. HEAD: Atraumatic. Normocephalic. EYES: Pupils equal and round. No scleral icterus. ENT: No nasal bleeding or discharge. NECK: Trachea midline. No JVD. CARDIOVASCULAR: Regular rate and irregularly irregular rhythm RESPIRATORY: No accessory muscle use. Clear to auscultation. Breath sounds equal bilaterally. MUSCULOSKELETAL: Extremities without clubbing, cyanosis, or edema. No obvious deformities. NEUROLOGICAL: Awake and alert. No obvious cranial nerve deficits. Normal speech. PSYCHIATRIC: Appropriate mood and affect; insight and judgment normal. Laboratory Laboratory Tests Test 07/23/17 19:09 07/24/17 04:55 07/24/17 05:10 07/25/17 04:45 Differential Total Cells Counted 100 Neutrophils % (Manual) 70 % Band Neutrophils % 24 % Lymphocytes % 4 % Monocytes % 1 % Eosinophils % 1 % Neutrophils # (Manual) 4.1 TH/MM3 Nucleated Red Blood Cells 1 /100 WBC Prothrombin Time 11.5 SEC Prothromb Time International Ratio 1.1 RATIO Activated Partial Thromboplast Time 23.7 SEC Blood Urea Nitrogen 25 MG/DL Creatinine 1.48 MG/DL Random Glucose 84 MG/DL Total Protein 6.9 GM/DL Albumin 3.5 GM/DL Calcium Level 9.4 MG/DL Magnesium Level 1.6 MG/DL Alkaline Phosphatase 219 U/L Aspartate Amino Transf (AST/SGOT) 459 U/L Alanine Aminotransferase (ALT/SGPT) 257 U/L Total Bilirubin 3.0 MG/DL Sodium Level 137 MEQ/L Potassium Level 4.6 MEQ/L Chloride Level 101 MEQ/L Carbon Dioxide Level 26.6 MEQ/L Total Creatine Kinase 50 U/L Troponin I LESS THAN 0.02 NG/ML B-Type Natriuretic Peptide 58 PG/ML Lipase 306 U/L Hepatitis A IgM Antibody NONREACTIVE Hepatitis B Surface Antigen NONREACTIVE Hepatitis B Core IgM Antibody NONREACTIVE Hepatitis C IgG Antibody NONREACTIVE Digoxin Level 0.6 NG/ML Toxic Vacuolation PRESENT Test 07/26/17 11:21 07/27/17 10:39 07/27/17 11:45 07/28/17 06:32 White Blood Count 4.8 TH/MM3 Red Blood Count 4.06 MIL/MM3 Hemoglobin 12.0 GM/DL Hematocrit 35.0 % Mean Corpuscular Volume 86.1 FL Mean Corpuscular Hemoglobin 29.5 PG Mean Corpuscular Hemoglobin Concent 34.2 % Red Cell Distribution Width 15.3 % Platelet Count 74 TH/MM3 Mean Platelet Volume 9.2 FL Neutrophils (%) (Auto) 83.4 % Lymphocytes (%) (Auto) 9.6 % Monocytes (%) (Auto) 4.7 % Eosinophils (%) (Auto) 2.2 % Basophils (%) (Auto) 0.1 % Neutrophils # (Auto) 4.0 TH/MM3 Lymphocytes # (Auto) 0.5 TH/MM3 Monocytes # (Auto) 0.2 TH/MM3 Eosinophils # (Auto) 0.1 TH/MM3 Basophils # (Auto) 0.0 TH/MM3 CBC Comment AUTO DIFF Differential Comment AUTO DIFF CONFIRMED Platelet Estimate LOW Platelet Morphology Comment NORMAL Iron Level 82 MCG/DL Total Iron Binding Capacity 224 MCG/DL Percent Iron Saturation 36.6 % Ferritin 431 NG/ML Tumor Marker Alpha Fetoprotein 2.1 NG/ML Anti-Smooth Muscle Antibody Negative [id number] 232 mg/dL Blood Urea Nitrogen 30 MG/DL Creatinine 1.42 MG/DL Random Glucose 77 MG/DL Total Protein 6.4 GM/DL Albumin 2.8 GM/DL Calcium Level 8.8 MG/DL Alkaline Phosphatase 150 U/L Aspartate Amino Transf (AST/SGOT) 65 U/L Alanine Aminotransferase (ALT/SGPT) 115 U/L Total Bilirubin 2.0 MG/DL Sodium Level 136 MEQ/L Potassium Level 4.5 MEQ/L Chloride Level 100 MEQ/L Carbon Dioxide Level 27.0 MEQ/L Anion Gap 9 MEQ/L Estimat Glomerular Filtration Rate 47 ML/MIN (Adela Acharya) Assessment and Plan Problem List: (1) CAD (coronary artery disease) ICD Codes: I25.10 - CAD (coronary artery disease) Status: Acute (2) Atrial fibrillation ICD Codes: I48.91 - Atrial fibrillation Status: Acute Assessment and Plan 87 yo WM with CHF, HTN, HLD, CAD, DMII and afib admitted from [facility] for nausea, vomiting and decreased oral intake. He has been found to have cholecystitis and surgical team considering surgery; in need of clearance. afib- rate controlled. not currently on anticoagulation due to fall risk. stable on digoxin no chest pain consider asa after surgery. felt to be able to generate 4 METS and likely to be cleared for surgical intervention once echo is performed and reviewed. cholecystitis- surgical team considering ravi tube vs. lap ravi vs. medical management. abx (Adela Acharya) Assessment and Plan \ will sign off call with questions (Marcelino Gilmore MD) Adela Acharya Jul 29, 2017 08:24 Marcelino Gilmore MD Jul 29, 2017 13:15
[2017-07-29] MEDS: DOCUSATE SODIUM 50 MG/SENNA 8.6 MG TAB PO SCH ×2 (09:00→20:48)
[2017-07-29] MEDS: FUROSEMIDE 20 MG TAB PO SCH (09:16)
[2017-07-29] MEDS: CARVEDILOL 6.25 MG TAB PO SCH ×2 (09:17→20:49)
[2017-07-29] MEDS: PANTOPRAZOLE SOD 20 MG DELAYED RELEASE TAB PO SCH (09:17)
[2017-07-29] MEDS: SPIRONOLACTONE 25 MG TAB PO SCH (09:17)
[2017-07-29] MEDS: SODIUM CHLORIDE 0.9% FLUSH 10 ML FLUSH IV FLUSH SCH ×2 (09:17→20:48)
--- NOTE | 2017-07-29 10:08 | HHI.PR ---
Subjective Remarks telemetry- a fib- rate controlled- 60-70s no nausea or vomiting or abdominal pain Objective Vitals Vital Signs Date Time Temp Pulse Resp B/P (MAP) Pulse Ox O2 Delivery O2 Flow Rate FiO2 07/29/17 08:08 97.3 83 20 136/64 (88) 100 07/29/17 04:03 81 07/29/17 04:00 98.0 72 18 138/60 (86) 98 07/29/17 00:00 98.2 75 18 121/66 (84) 98 07/28/17 23:43 75 07/28/17 20:00 98.2 69 18 132/87 (102) 99 07/28/17 20:00 Nasal Cannula 2.00 07/28/17 19:40 69 07/28/17 16:00 Nasal Cannula 2.00 07/28/17 16:00 70 07/28/17 15:30 97.1 65 15 131/63 (85) 98 07/28/17 12:00 Nasal Cannula 2.00 07/28/17 12:00 63 07/28/17 12:00 97.8 76 20 127/63 (84) 100 I/O 07/28/17 07/28/17 07/28/17 07/29/17 07/29/17 07/29/17 07:00 15:00 23:00 07:00 15:00 23:00 Output Total 500 ml Balance -500 ml Output Urine Total 500 ml # Voids 3 # Bowel Movements 1 Result Diagram: 07/26/17 1121 07/28/17 0632 Imaging Last Impressions Hepatobiliary Scan Nuclear Medicine 07/27/17 0000 Signed Impressions: Service Date/Time: Thursday, July 27, 2017 13:38 - CONCLUSION: 1. Nonvisualization of the gallbladder concerning for occlusion of the cystic duct. Delayed scanning will be performed for confirmation. 2. Patent common bile duct with normal biliary to bowel transit time. Daryn Haque MD ADDENDUM: 24-hour delayed images are now available. No delayed filling of the gallbladder. In the appropriate clinical setting, findings could be characteristic of acute cholecystitis. Waldo Mcguire MD Gall Bladder Ultrasound 07/24/17 0000 Signed Impressions: Service Date/Time: Monday, July 24, 2017 07:50 - CONCLUSION: 1. The examination demonstrates mild gallbladder wall thickening and sludge in the dependent portion of the gallbladder. No paracolic cystic fluid is evident. 2. Simple cyst identified within the right kidney. 3. No stones seen within the common duct. Maged Cobb MD Chest X-Ray 07/23/17 1906 Signed Impressions: Service Date/Time: July 19:12 - CONCLUSION: No evidence of acute cardiopulmonary disease. Luis Fernando Krishnamurthy MD Abdomen/Pelvis CT 07/23/17 0000 Signed Impressions: Service Date/Time: July 22:37 - CONCLUSION: 1. Mild gallbladder distention with some increased density in the dependent portion of the neck possibly representing small stones or sludge. No pericholecystic stranding, however. 2. Splenomegaly. 3. Probable 2.2 cm right adrenal adenoma, unchanged. 4. 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 5. Atherosclerotic calcification of the coronary arteries. 6. Tiny, bilateral pleural effusions with common atelectatic changes. Waldo Mcguier MD Objective Remarks awake and alert, no acute distress anicteric lungs- no rales, no wheezes irregularly irregular rhythm abdomen-soft, good bowel sounds, mild tenderness right upper quadrant with deep palpation extremities no edema A/P Problem List: (1) Atrial fibrillation with rapid ventricular response ICD Code: I48.91 - Unspecified atrial fibrillation Status: Acute (2) CKD (chronic kidney disease) ICD Code: N18.9 - Chronic kidney disease, unspecified Status: Acute (3) Transaminitis ICD Code: R74.0 - Nonspecific elevation of levels of transaminase and lactic acid dehydrogenase [LDH] Status: Acute Assessment and Plan 86-year-old man with Atrial fibrillation with RVR- now rate controlled- CHF/CAD/Hypertension Continue home medications CAILIN 4 on Digoxin and Coreg - adjust dosages- no further episodes of bradycardia Patient with history of atrial fibrillation although not on chronic anticoagulation due ? thrombocytopenia get a 2D echo- check EF consider starting OAC- but with thrombocytopenia- and hold for possible surgery Cardiology consulted for clearance Thrombocytopenia- ? chronic Hold Lovenox for now consult Hematology for recommendations Acute cholecystitis on HIDA Hepatitis profile negative. ff LFTs- trending down CT of the abdomen/pelvis significant for mild gallbladder distention with some increased density in the dependent portion of the neck Gallbladder ultrasound sludge positive GI ff general surgery consulted GERD/hypothyroidism Continue home medications Diabetes mellitus Sliding scale insulin Monitor blood glucose Chronic kidney disease Stage III stable. GI bleed-Resolved Hemoccult negative Get PT daily- Out of bed daily bid- states he gets around with a walker Incetnive spirometry hourly DVT prophylaxis with B-SCD; Problem Qualifiers (1) CKD (chronic kidney disease): Qualified Codes: N18.9 - Chronic kidney disease, unspecified Amaury Green MD Jul 29, 2017 10:08
--- NOTE | 2017-07-29 11:02 | MB ---
cc: Vidal Elias MD DATE: 07/28/2017 REASON FOR CONSULTATION: Patient with a history of atrial fibrillation, who has thrombocytopenia. Recommendations for anticoagulation. HISTORY OF PRESENT ILLNESS: This is an elderly male, who is 86 years of age. He has multiple medical issues. He is a poor historian. Based on the review from the EMR, he had a history of CHF, hypertension, hyperlipidemia, chronic kidney disease, CAD, GERD and hypothyroidism. He states that he lives in a [facility]. He is not ambulatory. He has lower extremity weakness and unsteady gait. He appears to have chronic physical deconditioning. He was brought to the emergency department with complaints of chest pain. He was found to be in atrial fibrillation with RVR. He has been seen by cardiology. He is getting medical management with rate control. He was started on heparin GTT. This has been stopped due to thrombocytopenia. During the course of his admission, a CT of the abdomen and pelvis was obtained which showed gallbladder distention. An ultrasound of the gallbladder showed mild gallbladder wall thickening and sludge without any common bile duct stones. HIDA scan has been also obtained. He is currently being evaluated by general surgery. The patient does not know whether he has been thrombocytopenic in the past. He tells me that he has never had any bleeding issues. He has also been on anticoagulation previously. Upon review of his labs, his WBC is 4.8, hemoglobin is 12 and platelet count is 74. This has essentially remained stable since his visit. The patient has been evaluated by Dr. Marcelino Gilmore and I have reviewed his note. It appears that he has determined that the patient is not a good candidate for anticoagulation and aspirin was recommended. REVIEW OF SYSTEMS: It is difficult to obtain a complete review of systems. The patient did answer some questions and I also reviewed records from the EMR. PAST MEDICAL HISTORY: CHF, hypertension, hyperlipidemia, chronic kidney disease, CAD, atrial fibrillation, GERD, hypothyroidism. PAST SURGICAL HISTORY: History of appendectomy. FAMILY HISTORY: Unable to be obtained; however, it appears to be noncontributory to this admission based on the patient's responses. SOCIAL HISTORY: He does not smoke cigarettes. He does not drink alcohol. He lives in a [facility]. MEDICATIONS: Melatonin 5 mg p.o. at bedtime, Zoloft 100 mg p.o. at bedtime, terazosin 2 mg p.o. at bedtime, Coreg 6.25 mg p.o. twice a day, digoxin 0.125 mg every other day, Lasix 20 mg daily, spironolactone 25 mg p.o. daily, pantoprazole 20 mg p.o. daily, senna and docusate, sliding scale insulin, levothyroxine 125 mcg daily, Tylenol as needed, Zofran as needed, Milk of Magnesia as needed, senna as needed, bisacodyl as needed, lactulose as needed. ALLERGIES: NO KNOWN DRUG ALLERGIES. PHYSICAL EXAM: VITAL SIGNS: Blood pressure is 131/63, pulse is in the 60s, temperature is 97.1. O2 saturations are 98 percent on 2 liters of nasal cannula. GENERAL: Chronically ill-appearing elderly male who does not appear to be in any distress. HEENT: Pupils equal, round, and reactive to light. EOMI. No thrush. No oral lesions. NECK: Supple. No JVD. No bruits. No lymphadenopathy. CHEST: Clear to auscultation bilaterally. CARDIAC: S1, S2, irregularly irregular heart rate. ABDOMEN: Soft, distended due to obesity. It was difficult to palpate the liver or spleen. Bowel sounds are present. EXTREMITIES: Bilateral lower extremity edema, 1+. No erythema or cyanosis. SKIN: Without any petechia, lesions or bruising. NEUROLOGIC: No focal deficits. PSYCHIATRIC: The patient was quite , however, in general mood and affect was appropriate. LABORATORY DATA: WBC is 4.8, hemoglobin is 12, platelet count is 74. Serum chemistry: Sodium 136, potassium 4.5, chloride 100, BUN 30, creatinine 1.42, GFR 47, total bilirubin is 2, AST 65, ALT is 115, alkaline phosphatase 150, albumin is 2.8. ASSESSMENT AND PLAN: This is an 86-year-old male with a history of multiple medical problems who presented to the emergency room with chest pain. He is currently undergoing cardiology evaluation and was found to be in atrial fibrillation with RVR. He has been rate controlled. He also has been experiencing abdominal pain and has been seen by GI and gastroenterology. He was found to be thrombocytopenic. Hematology has been consulted for anticoagulation recommendation. 1. Patient with atrial fibrillation with rapid ventricular rate. He is now rate controlled. He has thrombocytopenia with a platelet count in the 70,000 range. It is unclear what his baseline platelet count is. The patient is quite debilitated. He is a fall risk. He has multiple medical issues. I agree with Dr. Gilmore that he does not appear to be a good candidate for anticoagulation. I agree that aspirin may be a better choice for him. We will obtain thrombocytopenia workup. He may have chronic thrombocytopenia. We will check LDH and haptoglobin. We will check a hepatitis panel. We will review his peripheral smear once we obtain a DIC panel. We will monitor daily CBC. 2. Abdominal pain with elevated LFTs and total bilirubin level. Imaging reveals gallbladder thickening and sludge. He is currently being evaluated by surgery and GI. 3. History of congestive heart failure. 4. History of hypertension. 5. History of chronic kidney disease. 6. Gastroesophageal reflux disease. 7. Chronic physical deconditioning. Thank you for allowing me to participate in the care of this patient. I will continue to follow this patient along. MD KUSUM Sanz/KAY/rr , 08:12 AM , 09:08 AM
[2017-07-29 11:28] LABS: ANA SCREEN POS (NEG)
--- NOTE | 2017-07-29 12:51 | PD.ONC.PN ---
Subjective Subjective Remarks Afebrile overnight. patient resting in bed in nad. No complaints. Objective Data Date Time Temp Pulse Resp B/P (MAP) Pulse Ox O2 Delivery O2 Flow Rate FiO2 07/29/17 08:08 97.3 83 20 136/64 (88) 100 07/29/17 08:00 62 07/29/17 08:00 Nasal Cannula 2.00 07/29/17 04:03 81 07/29/17 04:00 98.0 72 18 138/60 (86) 98 07/29/17 00:00 98.2 75 18 121/66 (84) 98 07/28/17 23:43 75 07/28/17 20:00 98.2 69 18 132/87 (102) 99 07/28/17 20:00 Nasal Cannula 2.00 07/28/17 19:40 69 07/28/17 16:00 Nasal Cannula 2.00 07/28/17 16:00 70 07/28/17 15:30 97.1 65 15 131/63 (85) 98 07/29/17 07/29/17 07/29/17 07:00 15:00 23:00 Output Total 500 ml Balance -500 ml Result Diagram: 07/26/17 1121 07/28/17 0632 Administered Medications Medications (Trade) Dose Ordered Sig/Inge Route PRN Reason Start Time Stop Time Status Last Admin Dose Admin Carvedilol (Coreg) 6.25 mg BID PO 07/24/17 09:00 07/29/17 09:17 Digoxin (Lanoxin) 0.125 mg EVERY OTHER DAY PO 07/24/17 09:00 07/28/17 09:16 Furosemide (Lasix) 20 mg DAILY PO 07/24/17 09:00 07/29/17 09:16 Levothyroxine Sodium (Synthroid) 125 mcg DAILY@0700 PO 07/24/17 07:00 07/29/17 06:02 Melatonin (Melatonin) 5 mg HS PO 07/24/17 21:00 07/28/17 21:27 Sertraline HCl (Zoloft) 100 mg HS PO 07/24/17 21:00 07/28/17 21:28 Spironolactone (Aldactone) 25 mg DAILY PO 07/24/17 09:00 07/29/17 09:17 Terazosin HCl (Hytrin) 2 mg HS PO 07/24/17 21:00 07/28/17 21:27 Pantoprazole Sodium (Protonix) 20 mg DAILY PO 07/24/17 09:00 07/29/17 09:17 Sodium Chloride (NS Flush) 2 ml UNSCH PRN IV FLUSH FLUSH AFTER USING IV ACCESS 07/24/17 02:00 07/29/17 06:04 Sodium Chloride (NS Flush) 2 ml BID IV FLUSH 07/24/17 09:00 07/29/17 09:17 Acetaminophen (Tylenol) 650 mg Q4H PRN PO TEMP > 100.4 07/24/17 02:00 07/28/17 21:34 Heparin Sodium (Porcine) (Heparin Inj) 5,000 units Q8H SQ 07/24/17 02:00 Future Hold 07/25/17 02:18 Senna/Docusate Sodium (Kaylen-Colace) 1 tab BID PO 07/24/17 09:00 07/28/17 21:27 Piperacillin Sod/ Tazobactam Sod 50 ml @ 100 mls/hr Q8H IV 07/28/17 15:00 07/29/17 06:02 Objective Remarks GENERAL: Pleasant elderly male, lying in bed in nad. SKIN: Warm and dry. HEAD: Normocephalic. EYES: No injection or drainage. NECK: Supple, trachea midline. CARDIOVASCULAR: +S1/S2 RESPIRATORY: anterior blanchard clear. GASTROINTESTINAL: Abdomen soft, non-tender, nondistended. EXTREMITIES: No cyanosis, or edema. NEUROLOGICAL: awake but lethargic. Assessment/Plan Problem List: (1) Atrial fibrillation with rapid ventricular response ICD Codes: I48.91 - Unspecified atrial fibrillation Status: Acute Plan: --currently rate controlled, cardiology following. --agree with cardiology (Minor), the patient is NOT a good candidate for anticoagulation, Agree with ASA. (2) Thrombocytopenia ICD Codes: D69.6 - Thrombocytopenia, unspecified Plan: --unclear what the baseline platelet count is. --hepatitis panel negative --check LDH/haptoglobin (pending) --coag/fibrinogen pending. --peripheral smear path review pending Assessment 87y/o male with history of atrial fibrillation, now with thrombocytopenia. Hematology consulted for recommendations on anticoagulation. history of CHF, hypertension, hyperlipidemia, chronic kidney disease, CAD, GERD and hypothyroidism. Plan 1. check CBC today 2. await pathologist smear review, LDH/haptoglobin 3. supportive care Attending Statement The exam, history, and the medical decision-making described in the above note were completed with the assistance of the mid-level provider. I reviewed and agree with the findings presented. I attest that I had a [id number] encounter with the patient on the same day, and personally performed and documented my assessment and findings in the medical record. Thrombocytopenia improving--likely due to acute illness. may have chronic thrombocytopenia at baseline not a good candidate for anticoagulation will sign-off pls call if any questions Kelly Mckeon Jul 29, 2017 12:51 Vidal Elias MD Jul 29, 2017 23:14
--- NOTE | 2017-07-29 12:56 | HHI.PR ---
cc: Reina Wilkins MD Subjective Subjective Notes Doing well; tolerating diet Mouth sores seem to be getting better Complains of LEFT shoulder pain Objective Vitals/I&O Vital Signs Date Time Temp Pulse Resp B/P (MAP) Pulse Ox O2 Delivery O2 Flow Rate FiO2 07/29/17 08:08 97.3 83 20 136/64 (88) 100 07/29/17 08:00 Nasal Cannula 2.00 Labs Date/Time Source Procedure Growth Status 07/25/17 10:38 Stool Stool Stool Occult Blood (KELSI) - Final HEMOCCULT NEGATIVE Complete Radiology Last 48 hours Impressions Hepatobiliary Scan Nuclear Medicine 07/27/17 0000 Signed Impressions: Service Date/Time: Thursday, July 27, 2017 13:38 - CONCLUSION: 1. Nonvisualization of the gallbladder concerning for occlusion of the cystic duct. Delayed scanning will be performed for confirmation. 2. Patent common bile duct with normal biliary to bowel transit time. Daryn Haque MD ADDENDUM: 24-hour delayed images are now available. No delayed filling of the gallbladder. In the appropriate clinical setting, findings could be characteristic of acute cholecystitis. Waldo Mcguire MD Cardiovascular: Regular Lungs: Clear Abdomen: Other (mild RUQ tenderness with palption) Extremities: No edema A/P Assessment and Plan 87 year old male with multiple medical problems; RUQ abdominal pain -WIll continue medical management of cholecystitis -Zosyn; transition to Augmentin when DC home -Continue low fat diet SEEN WITH [employer]. DOING WELL WITH MEDICAL MANAGEMENT. NO PAIN, NO SIGNS OF INFECTION. CONTINUE ABX REINA WILKINS MD FACS Jeri Vigil [employer]ard Motor Operator [employer] Jul 29, 2017 12:56 Reina Wilkins MD Aug 02, 2017 12:04
[2017-07-29 14:29] LABS: AUTOMATED NEUTROPHIL # 3.6 TH/MM3 (1.8-7.7); BASOPHIL % 0.3 % (0.0-2.0); EOSINOPHIL # 0.2 TH/MM3 (0-0.4); EOSINOPHIL % 3.1 % (0.0-4.0); HEMATOCRIT 38.6 % (39.0-51.0); HEMOGLOBIN 13.3 GM/DL (13.0-17.0); LYMPH % 18.4 % (9.0-44.0); LYMPHOCYTE # 0.9 TH/MM3 (1.0-4.8); MEAN CELL VOLUME 86.7 FL (80.0-100.0); MEAN CORPUSCULAR HEMOGLOBIN 29.8 PG (27.0-34.0); MEAN CORPUSCULAR HGB CONC 34.4 % (32.0-36.0); MONOCYTE # 0.4 TH/MM3 (0-0.9); NEUT % 71.2 % (16.0-70.0); PLATELET COUNT 85 TH/MM3 (150-450); RED BLOOD COUNT 4.46 MIL/MM3 (4.50-5.90); RED CELL DISTRIBUTION WIDTH 14.2 % (11.6-17.2); WHITE BLOOD COUNT 5.1 TH/MM3 (4.0-11.0)
--- NOTE | 2017-07-29 15:03 | HHI.GIFU ---
Subjective Remarks Resting in the bed Mild right upper quadrant pain with light palpation Hemoglobin stable at 13.3 Afebrile (Lexus Gomez) Objective Vitals I&O Vital Signs Date Time Temp Pulse Resp B/P (MAP) Pulse Ox O2 Delivery O2 Flow Rate FiO2 07/29/17 12:08 97.3 69 20 136/71 (92) 100 07/29/17 12:00 Nasal Cannula 2.00 07/29/17 08:08 97.3 83 20 136/64 (88) 100 07/29/17 08:00 62 07/29/17 08:00 Nasal Cannula 2.00 07/29/17 04:03 81 07/29/17 04:00 98.0 72 18 138/60 (86) 98 07/29/17 00:00 98.2 75 18 121/66 (84) 98 07/28/17 23:43 75 07/28/17 20:00 98.2 69 18 132/87 (102) 99 07/28/17 20:00 Nasal Cannula 2.00 07/28/17 19:40 69 07/28/17 16:00 Nasal Cannula 2.00 07/28/17 16:00 70 07/28/17 15:30 97.1 65 15 131/63 (85) 98 I/O 07/28/17 07/28/17 07/28/17 07/29/17 07/29/17 07/29/17 07:00 15:00 23:00 07:00 15:00 23:00 Output Total 500 ml Balance -500 ml Output Urine Total 500 ml # Voids 3 # Bowel Movements 1 Laboratory Laboratory Tests Test 07/29/17 12:52 White Blood Count 5.1 Red Blood Count 4.46 Hemoglobin 13.3 Hematocrit 38.6 Mean Corpuscular Volume 86.7 Mean Corpuscular Hemoglobin 29.8 Mean Corpuscular Hemoglobin Concent 34.4 Red Cell Distribution Width 14.2 Platelet Count 85 Mean Platelet Volume 9.0 Neutrophils (%) (Auto) 71.2 Lymphocytes (%) (Auto) 18.4 Monocytes (%) (Auto) 7.0 Eosinophils (%) (Auto) 3.1 Basophils (%) (Auto) 0.3 Neutrophils # (Auto) 3.6 Lymphocytes # (Auto) 0.9 Monocytes # (Auto) 0.4 Eosinophils # (Auto) 0.2 Basophils # (Auto) 0.0 CBC Comment AUTO DIFF Blood Smear Pathologist Review Haptoglobin 115 Date/Time Source Procedure Growth Status 07/25/17 10:38 Stool Stool Stool Occult Blood (KELSI) - Final HEMOCCULT NEGATIVE Complete Imaging Last Impressions Hepatobiliary Scan Nuclear Medicine 07/27/17 0000 Signed Impressions: Service Date/Time: Thursday, July 27, 2017 13:38 - CONCLUSION: 1. Nonvisualization of the gallbladder concerning for occlusion of the cystic duct. Delayed scanning will be performed for confirmation. 2. Patent common bile duct with normal biliary to bowel transit time. Daryn Haque MD ADDENDUM: 24-hour delayed images are now available. No delayed filling of the gallbladder. In the appropriate clinical setting, findings could be characteristic of acute cholecystitis. Waldo Mcguire MD Gall Bladder Ultrasound 07/24/17 0000 Signed Impressions: Service Date/Time: Monday, July 24, 2017 07:50 - CONCLUSION: 1. The examination demonstrates mild gallbladder wall thickening and sludge in the dependent portion of the gallbladder. No paracolic cystic fluid is evident. 2. Simple cyst identified within the right kidney. 3. No stones seen within the common duct. Maged Cobb MD Chest X-Ray 07/23/17 1906 Signed Impressions: Service Date/Time: July 19:12 - CONCLUSION: No evidence of acute cardiopulmonary disease. Luis Fernando Krishnamurthy MD Abdomen/Pelvis CT 07/23/17 0000 Signed Impressions: Service Date/Time: July 22:37 - CONCLUSION: 1. Mild gallbladder distention with some increased density in the dependent portion of the neck possibly representing small stones or sludge. No pericholecystic stranding, however. 2. Splenomegaly. 3. Probable 2.2 cm right adrenal adenoma, unchanged. 4. 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 5. Atherosclerotic calcification of the coronary arteries. 6. Tiny, bilateral pleural effusions with common atelectatic changes. Waldo Mcguire MD Physical Exam HEENT: PERRL; normocephalic; atraumatic; no jaundice. CHEST: No obvious rhonchi or wheezing CARDIAC: irr HR, rate normal ABDOMEN: Soft, nondistended, right upper quadrant tenderness on light palpation ; no hepatosplenomegaly; bowel sounds are present in all four quadrants. EXTREMITIES: No clubbing, cyanosis, or edema. SKIN: Normal; no rash; no jaundice. MAGNETIC PROSPECTOR: Awake, answers simple questions appropriately knows he is now in the hospital and where he lives (Lexus Gomez) Assessment and Plan Plan ASSESSMENT - elevated LFTs - TBIL 3.0, AST 459, ALT 257, ALP 219 on admission. tbil has increased, other LFTs trending down. CT showed GB distention, poss stones or sludge in GB neck. US showed gb wall thickenign and sludge in dependent portion gallbladder. neg for hepatitis. could be congestive vs gallbladder etiology. will get liver w/u r/o other cause elev liver chemistries. tolerating heart healthy diet 07/27/17 no complaints but is tender in RUQ on exam. toelrating diet. hep neg. rest of liver w/u pending. 07/28/17 - HIDA suggestive cholecystitis. pt with no GI complaints but is tender in RUQ. GS consult pending. liver w/u so far unremarkable 07/29/17, still has some mild right upper quadrant tenderness on light palpation. Danna been stable at 13.3, CLINT screen positive, ceruloplasmin pending, anti-smooth muscle antibody negative. Appreciate general surgery input and consult. Plan medical management for patient's cholecystitis for now PLAN - Medical management for cholecystitis per GS - liver w/u in progress - diet heart healthy - supportive care - outpt colonoscopy if warranted - Based on symptoms further recommendations to follow - Monitor hemoglobin monitor labs and symptom management pt seen by myself and Dr Cortes and myself and this note is on her behalf (Lexus Gomez) Lexus Gomez Jul 29, 2017 15:03 Leeann Cortes MD Jul 29, 2017 19:15
[2017-07-29 16:12] LABS: AST (GOT) 49 U/L (15-37); BICARBONATE 27.1 MEQ/L (21.0-32.0); BLOOD UREA NITROGEN 30 MG/DL (7-18); CALCIUM 8.8 MG/DL (8.5-10.1); CHLORIDE 99 MEQ/L (98-107); CREATININE 1.67 MG/DL (0.60-1.30); GLOMERULAR FILTRATION RATE 39 ML/MIN (>89); GLUCOSE,RANDOM 91 MG/DL (74-106); SODIUM (NA) 137 MEQ/L (136-145)
[2017-07-29 16:15] LABS: ALKALINE PHOSPHATASE 155 U/L (45-117); ALT (GPT) 100 U/L (12-78); TOTAL BILIRUBIN ADULT 1.2 MG/DL (0.2-1.0); TOTAL PROTEIN 6.7 GM/DL (6.4-8.2)
--- NOTE | 2017-07-29 19:40 | ECHRPT ---
Indication: A FIB RAPID, CHF CONCLUSIONS Normal left ventricular size. Wall thickness is normal. The left ventricular systolic function is normal with an estimated ejection fraction in the range of 55-60%. Mitral annular calcification is present. Trace mitral valve regurgitation. Aortic valve sclerosis is present. Mild thickening of the aortic valve leaflets. Trace aortic valve regurgitation. BP: 127 / 63 HR: 76 Rhythm: MEASUREMENTS (Male / Female) Normal Values Technical Quality:Technically difficult study 2D ECHO LV Diastolic Diameter PLAX 4.7 cm 4.2 - 5.9 / 3.9 - 5.3 cm LV Systolic Diameter PLAX 3.6 cm IVS Diastolic Thickness 1.2 cm 0.6 - 1.0 / 0.6 - 0.9 cm LVPW Diastolic Thickness 0.9 cm 0.6 - 1.0 / 0.6 - 0.9 cm LV Relative Wall Thickness 0.4 LA Systolic Diameter LX 3.7 cm 3.0 - 4.0 / 2.7 - 3.8 cm DOPPLER AV Peak Velocity 181.0 cm/s AV Peak Gradient 13.1 mmHg AV Mean Gradient 7.0 mmHg AV Velocity Time Integral 37.8 cm LVOT Peak Velocity 66.0 cm/s LVOT Peak Gradient 1.7 mmHg LVOT Velocity Time Integral 14.9 cm MV Peak Velocity 112.0 cm/s MV Peak Gradient 5.0 mmHg MV Mean Velocity 67.6 cm/s MV Mean Gradient 2.0 mmHg Mitral E Point Velocity 112.0 cm/s Mitral A Point Velocity 29.1 cm/s Mitral E to A Ratio 3.8 TR Peak Velocity 194.0 cm/s TR Peak Gradient 15.1 mmHg FINDINGS LEFT VENTRICLE Normal left ventricular size. Wall thickness is normal. The left ventricular systolic function is normal with an estimated ejection fraction in the range of 55-60%. RIGHT VENTRICLE Normal right ventricular size and systolic function. LEFT ATRIUM The left atrial size is normal. RIGHT ATRIUM The right atrial size is normal. ATRIAL SEPTUM Normal atrial septal thickness without atrial level shunting by limited color doppler interrogation. AORTA The aortic root and proximal ascending aorta are normal in size on limited imaging. MITRAL VALVE Mitral annular calcification is present. Trace mitral valve regurgitation. AORTIC VALVE Aortic valve sclerosis is present. Mild thickening of the aortic valve leaflets. Trace aortic valve regurgitation. TRICUSPID VALVE Structurally normal tricuspid valve. No tricuspid valve stenosis or regurgitation. PULMONARY VALVE The pulmonary valve is not well visualized. VESSELS The inferior vena cava is normal in size. PERICARDIUM No pericardial effusion. Roman Hastings MD, FACC (Electronically Signed) Final Date:29 July 2017 19:39
[2017-07-29] MEDS: SERTRALINE HCL 100 MG TAB PO SCH (20:48)
[2017-07-29] MEDS: MELATONIN 5 MG TAB PO SCH (20:49)
[2017-07-29] MEDS: TERAZOSIN HCL 1 MG CAP PO SCH (20:49)
[2017-07-30] VITALS: BP 129/68; PULSE 68; RESP 20; TEMP 97.1; O2SAT 97
[2017-07-30 04:00] VITALS: BP 125/75; PULSE 69; RESP 20; TEMP 97.9; O2SAT 99
[2017-07-30] MEDS: PIPERACIL-TAZO 3.375 GM PREMIX 50 ML IV SCH (05:44)
[2017-07-30] MEDS: LEVOTHYROXINE SODIUM 125 MCG TAB PO SCH (05:44)
[2017-07-30 08:00] VITALS: BP 108/57; PULSE 82; RESP 14; TEMP 98.6; O2SAT 100
[2017-07-30] MEDS: INSULIN ASPART SUPPLEMENTAL SCALE SQ SCH ×2 (08:00→12:00)
[2017-07-30] MEDS: SODIUM CHLORIDE 0.9% FLUSH 10 ML FLUSH IV FLUSH SCH (09:16)
[2017-07-30] MEDS: SPIRONOLACTONE 25 MG TAB PO SCH (09:16)
[2017-07-30] MEDS: CARVEDILOL 6.25 MG TAB PO SCH (09:16)
[2017-07-30] MEDS: FUROSEMIDE 20 MG TAB PO SCH (09:17)
[2017-07-30] MEDS: PANTOPRAZOLE SOD 20 MG DELAYED RELEASE TAB PO SCH (09:17)
[2017-07-30] MEDS: DIGOXIN 0.125 MG TAB PO SCH (09:17)
[2017-07-30] MEDS: DOCUSATE SODIUM 50 MG/SENNA 8.6 MG TAB PO SCH (09:17)
--- NOTE | 2017-07-30 09:25 | HHI.PR ---
Subjective Remarks tolerating po with no nausea or vomiting no complains of pain feeding himself no complains of oral pain Objective Vitals Vital Signs Date Time Temp Pulse Resp B/P (MAP) Pulse Ox O2 Delivery O2 Flow Rate FiO2 07/30/17 04:00 97.9 69 20 125/75 (92) 99 07/30/17 04:00 Nasal Cannula 2.00 07/30/17 00:00 Nasal Cannula 2.00 07/30/17 00:00 97.1 68 20 129/68 (88) 97 07/29/17 19:52 97.6 64 18 120/71 (87) 99 07/29/17 19:52 Nasal Cannula 2.00 07/29/17 16:30 98.4 64 17 131/62 (85) 100 07/29/17 16:00 Nasal Cannula 2.00 07/29/17 16:00 74 07/29/17 12:08 97.3 69 20 136/71 (92) 100 07/29/17 12:00 63 07/29/17 12:00 Nasal Cannula 2.00 I/O 07/29/17 07/29/17 07/29/17 07/30/17 07/30/17 07/30/17 07:00 15:00 23:00 07:00 15:00 23:00 Intake Total 520 ml 450 ml Output Total 500 ml 1000 ml 900 ml Balance -500 ml -480 ml -450 ml Intake Oral 520 ml 400 ml IV Total 50 ml Output Urine Total 500 ml 1000 ml 900 ml # Bowel Movements 1 0 Result Diagram: 07/29/17 1252 07/29/17 1252 Imaging Last Impressions Hepatobiliary Scan Nuclear Medicine 07/27/17 0000 Signed Impressions: Service Date/Time: Thursday, July 27, 2017 13:38 - CONCLUSION: 1. Nonvisualization of the gallbladder concerning for occlusion of the cystic duct. Delayed scanning will be performed for confirmation. 2. Patent common bile duct with normal biliary to bowel transit time. Daryn Haque MD ADDENDUM: 24-hour delayed images are now available. No delayed filling of the gallbladder. In the appropriate clinical setting, findings could be characteristic of acute cholecystitis. Waldo Mcguire MD Gall Bladder Ultrasound 07/24/17 0000 Signed Impressions: Service Date/Time: Monday, July 24, 2017 07:50 - CONCLUSION: 1. The examination demonstrates mild gallbladder wall thickening and sludge in the dependent portion of the gallbladder. No paracolic cystic fluid is evident. 2. Simple cyst identified within the right kidney. 3. No stones seen within the common duct. Maged Cobb MD Chest X-Ray 07/23/17 1906 Signed Impressions: Service Date/Time: July 19:12 - CONCLUSION: No evidence of acute cardiopulmonary disease. Luis Fernando Krishnamurthy MD Abdomen/Pelvis CT 07/23/17 0000 Signed Impressions: Service Date/Time: July 22:37 - CONCLUSION: 1. Mild gallbladder distention with some increased density in the dependent portion of the neck possibly representing small stones or sludge. No pericholecystic stranding, however. 2. Splenomegaly. 3. Probable 2.2 cm right adrenal adenoma, unchanged. 4. 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 5. Atherosclerotic calcification of the coronary arteries. 6. Tiny, bilateral pleural effusions with common atelectatic changes. Waldo Mcguire MD Objective Remarks awake and alert, no acute distress oral mucosa- no sores anicteric lungs- no rales, no wheezes irregularly irregular rhythm abdomen-soft, good bowel sounds, mild tenderness right upper quadrant with deep palpation extremities no edema. moves all extremities spontaneously A/P Problem List: (1) Atrial fibrillation with rapid ventricular response ICD Code: I48.91 - Unspecified atrial fibrillation Status: Acute (2) CKD (chronic kidney disease) ICD Code: N18.9 - Chronic kidney disease, unspecified Status: Acute (3) Transaminitis ICD Code: R74.0 - Nonspecific elevation of levels of transaminase and lactic acid dehydrogenase [LDH] Status: Acute Assessment and Plan 86-year-old man with Atrial fibrillation with RVR- now rate controlled- CHF/CAD/Hypertension Continue home medications CAILIN 4 on Digoxin and Coreg - adjust dosages- no further episodes of bradycardia Patient with history of atrial fibrillation although not on chronic anticoagulation due ? thrombocytopenia start ASA- appreciate cardiology input Thrombocytopenia- ? chronic Hold Lovenox for now. Up and ambulating ASA daily Acute cholecystitis on HIDA Hepatitis profile negative. ff LFTs- trending down CT of the abdomen/pelvis significant for mild gallbladder distention with some increased density in the dependent portion of the neck Gallbladder ultrasound sludge positive GI ff general surgery consulted-- no plans for surgery-antibiotics DC if cleared with OP ff up with them- on po antibiotics GERD/hypothyroidism Continue home medications Diabetes mellitus good readings Sliding scale insulin Monitor blood glucose Chronic kidney disease Stage III stable. GI bleed-Resolved Hemoccult negative Get PT daily- Out of bed daily bid- Baeline bedbound status ? Incentive spirometry hourly DVT prophylaxis with B-SCD; CM - DC planning- [facility] with po antibiotics per GS Problem Qualifiers (1) CKD (chronic kidney disease): Qualified Codes: N18.9 - Chronic kidney disease, unspecified Amaury Green MD Jul 30, 2017 09:25
[2017-07-30 10:11] LABS: INTERNATIONAL NORMALIZED RATIO 1.1 RATIO; PROTHROMBIN TIME - PATIENT 11.4 SEC (9.8-11.6)
[2017-07-30 11:29] VITALS: PULSE 61
[2017-07-30 12:13] VITALS: BP 130/62; PULSE 72; RESP 14; TEMP 95.2; O2SAT 100
--- NOTE | 2017-07-30 12:18 | HHI.DS ---
Discharge Summary Admission Date Jul 23, 2017 at 22:43 Discharge Date: Jul 30, 2017 Admitting Diagnosis AFIB W/ RVR (1) Atrial fibrillation with rapid ventricular response ICD Code: I48.91 - Unspecified atrial fibrillation Diagnosis: Principal Status: Acute (2) Acute cholecystitis ICD Code: K81.0 - Acute cholecystitis Diagnosis: Principal (3) CKD (chronic kidney disease) ICD Code: N18.9 - Chronic kidney disease, unspecified Diagnosis: Secondary Status: Acute (4) Transaminitis ICD Code: R74.0 - Nonspecific elevation of levels of transaminase and lactic acid dehydrogenase [LDH] Diagnosis: Secondary Status: Acute (5) chronic thrombocytopenia Diagnosis: Secondary Procedures none Brief History - From Admission 86-year-old male with a past medical history significant for CHF (no recent echo ), hypertension, hyperlipidemia, type 2 diabetes mellitus, chronic kidney disease, coronary artery disease, atrial fibrillation (not currently on chronic anticoagulation) and GERD presents to the emergency department from his shelter facility for the evaluation of chest pain. Per ED documentation, the chest pain started around 3:00 yesterday afternoon and was accompanied with nausea. The patient is a resident of the half-way. He is any chest pain at the time of our interview. He was found to be in atrial fibrillation with rapid ventricular response on arrival to the emergency department. At the time of our interview he complains of bilateral lower extremity pain and pain in his buttock region which he states is from lying on the hard palate. He denies any chest pain or shortness of breath. Denies nausea/vomiting/diarrhea. No fever/ chills. A&O 3. The patient is a poor historian whose past medical history is obtained from medical record review. CBC/BMP: 07/29/17 1252 07/29/17 1252 Significant Findings Laboratory Tests Test 07/28/17 06:32 07/29/17 12:52 07/30/17 07:23 Blood Urea Nitrogen 30 MG/DL (7-18) 30 MG/DL (7-18) Creatinine 1.42 MG/DL (0.60-1.30) 1.67 MG/DL (0.60-1.30) Albumin 2.8 GM/DL (3.4-5.0) 3.0 GM/DL (3.4-5.0) Alkaline Phosphatase 150 U/L (45-117) 155 U/L (45-117) Aspartate Amino Transf (AST/SGOT) 65 U/L (15-37) 49 U/L (15-37) Alanine Aminotransferase (ALT/SGPT) 115 U/L (12-78) 100 U/L (12-78) Total Bilirubin 2.0 MG/DL (0.2-1.0) 1.2 MG/DL (0.2-1.0) Estimat Glomerular Filtration Rate 47 ML/MIN (>89) 39 ML/MIN (>89) Red Blood Count 4.46 MIL/MM3 (4.50-5.90) Hematocrit 38.6 % (39.0-51.0) Platelet Count 85 TH/MM3 (150-450) Neutrophils (%) (Auto) 71.2 % (16.0-70.0) Lymphocytes # (Auto) 0.9 TH/MM3 (1.0-4.8) Platelet Estimate LOW (NORMAL) Platelet Morphology Comment ENLARGED (NORMAL) Activated Partial Thromboplast Time 32.7 SEC (24.3-30.1) Fibrinogen 473 mg/dL (227-377) Imaging Last Impressions Hepatobiliary Scan Nuclear Medicine 07/27/17 0000 Signed Impressions: Service Date/Time: Thursday, July 27, 2017 13:38 - CONCLUSION: 1. Nonvisualization of the gallbladder concerning for occlusion of the cystic duct. Delayed scanning will be performed for confirmation. 2. Patent common bile duct with normal biliary to bowel transit time. Daryn Haque MD ADDENDUM: 24-hour delayed images are now available. No delayed filling of the gallbladder. In the appropriate clinical setting, findings could be characteristic of acute cholecystitis. Waldo Mcguire MD Gall Bladder Ultrasound 07/24/17 0000 Signed Impressions: Service Date/Time: Monday, July 24, 2017 07:50 - CONCLUSION: 1. The examination demonstrates mild gallbladder wall thickening and sludge in the dependent portion of the gallbladder. No paracolic cystic fluid is evident. 2. Simple cyst identified within the right kidney. 3. No stones seen within the common duct. Maged Cobb MD Chest X-Ray 07/23/17 1906 Signed Impressions: Service Date/Time: July 19:12 - CONCLUSION: No evidence of acute cardiopulmonary disease. Luis Fernando Krishnamurthy MD Abdomen/Pelvis CT 07/23/17 0000 Signed Impressions: Service Date/Time: July 22:37 - CONCLUSION: 1. Mild gallbladder distention with some increased density in the dependent portion of the neck possibly representing small stones or sludge. No pericholecystic stranding, however. 2. Splenomegaly. 3. Probable 2.2 cm right adrenal adenoma, unchanged. 4. 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 5. Atherosclerotic calcification of the coronary arteries. 6. Tiny, bilateral pleural effusions with common atelectatic changes. Waldo Mcguire MD PE at Discharge awake and alert, no acute distress oral mucosa- no sores anicteric lungs- no rales, no wheezes irregularly irregular rhythm abdomen-soft, good bowel sounds, mild tenderness right upper quadrant with deep palpation extremities no edema. moves all extremities spontaneously Pt update on day of discharge afebrile tolerating po well no complains of nausea or vomiting, chest pains or shortness of breath Hospital Course 86-year-old man with Atrial fibrillation with RVR- now rate controlled- CHF/CAD/Hypertension Continue home medications CAILIN 4 on Digoxin and Coreg - adjust dosages- no further episodes of bradycardia Patient with history of atrial fibrillation although not on chronic anticoagulation due ? thrombocytopenia start ASA- appreciate cardiology input Thrombocytopenia- ? chronic Hold Lovenox for now. Up and ambulating ASA daily Acute cholecystitis on HIDA Hepatitis profile negative. ff LFTs- trending down CT of the abdomen/pelvis significant for mild gallbladder distention with some increased density in the dependent portion of the neck Gallbladder ultrasound sludge positive GI ff general surgery consulted-- no plans for surgery-antibiotics DC if cleared with OP ff up with them- on po antibiotics GERD/hypothyroidism Continue home medications DM, good readings- diet controlled not requiring any coverage at all Chronic kidney disease Stage III stable. GI bleed-Resolved Hemoccult negative Get PT daily- Out of bed daily bid- Baeline bedbound status ? Incentive spirometry hourly DVT prophylaxis with B-SCD; CM - DC planning- [facility] with po antibiotics per GS Pt Condition on Discharge: Stable Discharge Disposition: Discharge to SNF Discharge Time: > 30 minutes Discharge Instructions DIET: Follow Instructions for: Heart Healthy Diet, Diabetic Diet Activities you can perform: Weight Bearing as Emily Activities to Avoid: Strenuous Activity Continued Medications: Aspirin (Aspirin) 81 Mg Chew 81 MG CHEW ONCE, #1 TAB 0 Refills Calcium Polycarbophil (Fibercon) 625 Mg Tab 625 MG PO PRN for CONSTIPATION, TAB 0 Refills Carvedilol (Carvedilol) 6.25 Mg Tab 6.25 MG PO BID, #60 TAB 0 Refills Digoxin (Digoxin) 0.125 Mg Tab 0.125 MG PO EVERY OTHER DAY for Regulate Heart Beat, #30 TAB 0 Refills Docusate Sodium (Colace) 100 Mg Capsule 100 MG PO DAILY for Prevent Constipation, #60 CAP 0 Refills Furosemide (Lasix) 20 Mg Tab 20 MG PO DAILY, #30 TAB 0 Refills Levothyroxine (Levothyroxine) 125 Mcg Tab 125 MCG PO DAILY for Thyroid, #30 TAB 0 Refills Melatonin (Melatonin) 5 Mg Tab 5 MG PO HS for Provide Good Sleep, TAB 0 Refills Nitroglycerin SL (Nitrostat SL) 0.4 Mg Subl 0.4 MG SL DIRECTED PRN for CHEST PAIN, #100 TAB.SL 0 Refills 1 tablet under the tongue as needed for chest pain. Repeat every 5 minutes for a total of 3 DOSES or call 911 if NO relief. Omeprazole (Omeprazole) 20 Mg Tab 20 MG PO DAILY, #30 TAB 0 Refills Polysaccharide Iron Complex (Poly-Iron 150) 150 Mg Iron Cap 150 MG PO Q12HR for Nutritional Supplement, #60 CAP 0 Refills Polyvinyl Alcohol-Povidone Opth Drops (Refresh Opth Drops) 1.4-0.6% Drops 1-2 DROP EACH EYE PRN PRN for DRY EYE, #1 BOTTLE 0 Refills Sertraline (Sertraline) 100 Mg Tab 100 MG PO HS, #30 TAB 0 Refills Spironolactone (Aldactone) 25 Mg Tab 25 MG PO DAILY, #30 TAB 0 Refills Terazosin (Terazosin) 2 Mg Cap 2 MG PO HS, #30 CAP 0 Refills Discontinued Medications: Acetaminophen (Tylenol) 325 Mg Tab 650 MG PO Q4H PRN for PAIN 1 TO 10 AND/OR AGITATION, TAB 0 Refills Ibuprofen (Ibuprofen) 400 Mg Tab 400 MG PO Q8H PRN for PAIN SCALE 1 TO 3, TAB 0 Refills Meloxicam (Meloxicam) 15 Mg Tab 15 MG PO DAILY for Arthritis Pain, #30 TAB 0 Refills Amaury Green MD Jul 30, 2017 12:18
--- NOTE | 2017-07-30 12:25 | HHI.PR ---
cc: Reina Wilkins MD Subjective Subjective Notes Resting in bed visiting with a friend Reports no pain Tolerating regular diet Objective Vitals/I&O Vital Signs Date Time Temp Pulse Resp B/P (MAP) Pulse Ox O2 Delivery O2 Flow Rate FiO2 07/30/17 12:13 95.2 72 14 130/62 (84) 100 07/30/17 11:31 Nasal Cannula 2.00 Labs Laboratory Tests Test 07/29/17 12:52 07/30/17 07:23 White Blood Count 5.1 Red Blood Count 4.46 Hemoglobin 13.3 Hematocrit 38.6 Mean Corpuscular Volume 86.7 Mean Corpuscular Hemoglobin 29.8 Mean Corpuscular Hemoglobin Concent 34.4 Red Cell Distribution Width 14.2 Platelet Count 85 Mean Platelet Volume 9.0 Neutrophils (%) (Auto) 71.2 Lymphocytes (%) (Auto) 18.4 Monocytes (%) (Auto) 7.0 Eosinophils (%) (Auto) 3.1 Basophils (%) (Auto) 0.3 Neutrophils # (Auto) 3.6 Lymphocytes # (Auto) 0.9 Monocytes # (Auto) 0.4 Eosinophils # (Auto) 0.2 Basophils # (Auto) 0.0 CBC Comment AUTO DIFF Differential Comment AUTO DIFF CONFIRMED Platelet Estimate LOW Platelet Morphology Comment ENLARGED Blood Smear Pathologist Review Haptoglobin 115 Blood Urea Nitrogen 30 Creatinine 1.67 Random Glucose 91 Total Protein 6.7 Albumin 3.0 Calcium Level 8.8 Alkaline Phosphatase 155 Aspartate Amino Transf (AST/SGOT) 49 Alanine Aminotransferase (ALT/SGPT) 100 Total Bilirubin 1.2 Sodium Level 137 Potassium Level 4.1 Chloride Level 99 Carbon Dioxide Level 27.1 Anion Gap 11 Estimat Glomerular Filtration Rate 39 Lactate Dehydrogenase 145 Hepatitis B Surface Antigen NONREACTIVE Hepatitis B Core IgM Antibody NONREACTIVE Prothrombin Time 11.4 Prothromb Time International Ratio 1.1 Activated Partial Thromboplast Time 32.7 Fibrinogen 473 Date/Time Source Procedure Growth Status 07/25/17 10:38 Stool Stool Stool Occult Blood (KELSI) - Final HEMOCCULT NEGATIVE Complete Radiology Last 48 hours Impressions Hepatobiliary Scan Nuclear Medicine 07/27/17 0000 Signed Impressions: Service Date/Time: Thursday, July 27, 2017 13:38 - CONCLUSION: 1. Nonvisualization of the gallbladder concerning for occlusion of the cystic duct. Delayed scanning will be performed for confirmation. 2. Patent common bile duct with normal biliary to bowel transit time. Daryn Haque MD ADDENDUM: 24-hour delayed images are now available. No delayed filling of the gallbladder. In the appropriate clinical setting, findings could be characteristic of acute cholecystitis. Waldo Mcguire MD Cardiovascular: Regular Lungs: Clear Abdomen: Other (no RUQ tenderness with palpation today ) Extremities: No edema A/P Assessment and Plan 87 year old male with multiple medical problems; RUQ abdominal pain -WIll continue medical management of cholecystitis -Transition to PO Augmentin or 7 more days -Low fat diet -GS clear for DC SEEN ON ROUNDS WITH FIELD IRRIGATION WORKER WHO DOCUMENTED OUR VISIT. HAS DONE WELL WITH MEDICAL MANAGEMENT. STABLE FOR DC. REINA WILKINS MD FACS Jeri VigilP/[employer] FIELD IRRIGATION WORKER Jul 30, 2017 12:25 Reina Wilkins MD Aug 02, 2017 12:12
[2017-07-30] MEDS ORDERED: AMOX875T2 PO (12:27)
--- NOTE | 2017-07-30 13:22 | HHI.GIFU ---
Subjective Remarks Pt resting in bed eating cake. Family at bedside. Offers no GI complaints. Objective Vitals I&O Vital Signs Date Time Temp Pulse Resp B/P (MAP) Pulse Ox O2 Delivery O2 Flow Rate FiO2 07/30/17 12:13 95.2 72 14 130/62 (84) 100 07/30/17 11:31 100 Nasal Cannula 2.00 07/30/17 11:29 61 07/30/17 08:00 98.6 82 14 108/57 (74) 100 07/30/17 04:00 97.9 69 20 125/75 (92) 99 07/30/17 04:00 Nasal Cannula 2.00 07/30/17 00:00 Nasal Cannula 2.00 07/30/17 00:00 97.1 68 20 129/68 (88) 97 07/29/17 19:52 97.6 64 18 120/71 (87) 99 07/29/17 19:52 Nasal Cannula 2.00 07/29/17 16:30 98.4 64 17 131/62 (85) 100 07/29/17 16:00 Nasal Cannula 2.00 07/29/17 16:00 74 I/O 07/29/17 07/29/17 07/29/17 07/30/17 07/30/17 07/30/17 07:00 15:00 23:00 07:00 15:00 23:00 Intake Total 520 ml 450 ml Output Total 500 ml 1000 ml 900 ml Balance -500 ml -480 ml -450 ml Intake Oral 520 ml 400 ml IV Total 50 ml Output Urine Total 500 ml 1000 ml 900 ml # Bowel Movements 1 0 Laboratory Laboratory Tests Test 07/30/17 07:23 Prothrombin Time 11.4 Prothromb Time International Ratio 1.1 Activated Partial Thromboplast Time 32.7 Fibrinogen 473 Date/Time Source Procedure Growth Status 07/25/17 10:38 Stool Stool Stool Occult Blood (KELSI) - Final HEMOCCULT NEGATIVE Complete Imaging Last Impressions Hepatobiliary Scan Nuclear Medicine 07/27/17 0000 Signed Impressions: Service Date/Time: Thursday, July 27, 2017 13:38 - CONCLUSION: 1. Nonvisualization of the gallbladder concerning for occlusion of the cystic duct. Delayed scanning will be performed for confirmation. 2. Patent common bile duct with normal biliary to bowel transit time. Daryn Haque MD ADDENDUM: 24-hour delayed images are now available. No delayed filling of the gallbladder. In the appropriate clinical setting, findings could be characteristic of acute cholecystitis. Waldo Mcguire MD Gall Bladder Ultrasound 07/24/17 0000 Signed Impressions: Service Date/Time: Monday, July 24, 2017 07:50 - CONCLUSION: 1. The examination demonstrates mild gallbladder wall thickening and sludge in the dependent portion of the gallbladder. No paracolic cystic fluid is evident. 2. Simple cyst identified within the right kidney. 3. No stones seen within the common duct. Maged Cobb MD Chest X-Ray 07/23/17 1906 Signed Impressions: Service Date/Time: July 19:12 - CONCLUSION: No evidence of acute cardiopulmonary disease. Luis Fernando Krishnamurthy MD Abdomen/Pelvis CT 07/23/17 0000 Signed Impressions: Service Date/Time: July 22:37 - CONCLUSION: 1. Mild gallbladder distention with some increased density in the dependent portion of the neck possibly representing small stones or sludge. No pericholecystic stranding, however. 2. Splenomegaly. 3. Probable 2.2 cm right adrenal adenoma, unchanged. 4. 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 5. Atherosclerotic calcification of the coronary arteries. 6. Tiny, bilateral pleural effusions with common atelectatic changes. Waldo Mcguire MD Physical Exam HEENT: PERRL; normocephalic; atraumatic; no jaundice. CHEST: No obvious rhonchi or wheezing CARDIAC: irr HR, rate normal ABDOMEN: Soft, nondistended, right upper quadrant tenderness on light palpation ; no hepatosplenomegaly; bowel sounds are present in all four quadrants. EXTREMITIES: No clubbing, cyanosis, or edema. SKIN: Normal; no rash; no jaundice. QUALITY CONTROL CHECKER: Awake, answers simple questions appropriately knows he is now in the hospital and where he lives Assessment and Plan Plan ASSESSMENT - elevated LFTs - TBIL 3.0, AST 459, ALT 257, ALP 219 on admission. tbil has increased, other LFTs trending down. CT showed GB distention, poss stones or sludge in GB neck. US showed gb wall thickenign and sludge in dependent portion gallbladder. neg for hepatitis. could be congestive vs gallbladder etiology. will get liver w/u r/o other cause elev liver chemistries. tolerating heart healthy diet 07/27/17 no complaints but is tender in RUQ on exam. toelrating diet. hep neg. rest of liver w/u pending. 07/28/17 - HIDA suggestive cholecystitis. pt with no GI complaints but is tender in RUQ. GS consult pending. liver w/u so far unremarkable 07/29/17, still has some mild right upper quadrant tenderness on light palpation. Danna been stable at 13.3, CLINT screen positive, ceruloplasmin pending, anti-smooth muscle antibody negative. Appreciate general surgery input and consult. Plan medical management for patient's cholecystitis for now 07/30/17 denies abd pain. eating cake. medical mgmt per GS. CLINT pos. otherwise so far liver w/u negative. PLAN - Medical management for cholecystitis per GS - f/u with GI after dc - low fat diet - supportive care - ok to d/c from GI standpoint pt seen by myself and Dr Cortes and myself and this note is on her behalf Carri Nolasco Jul 30, 2017 13:22
[2017-07-30 13:53] LABS: MITOCHONDRIAL ABS LESS THAN 20.0 U (<=20.0)
[2017-07-30 19:53] LABS: CERULOPLASMIN 32 mg/dL (18-36)
[2017-07-30] MEDS ORDERED: AMOXICILLIN/CLAVULANATE K 875 MG TAB PO SCH (21:00)
[2017-07-31 16:46] LABS: ANA PATTERN DIFFUSE
== END 2017-07-30 15:10 | DRG 309 ==
LOC: NEPE 18:38 → NEDA 22:43 → NEDH 07-24 02:43 → HCIS 07-24 16:44 → N04A 07-27 21:25
PROVIDERS: ADMIT Internal Medicine; ATTEND Internal Medicine
DX: I48.91 Unspecified atrial fibrillation (principal); K81.0 Acute cholecystitis; E11.22 Type 2 diabetes mellitus with diabetic chronic kidney disease; D69.6 Thrombocytopenia, unspecified; I13.0 Hypertensive heart and chronic kidney disease with heart failure and stage 1 through stage 4 chronic kidney disease, or unspecified chronic kidney disease; I50.9 Heart failure, unspecified; N18.3 Chronic kidney disease, stage 3 (moderate); R16.1 Splenomegaly, not elsewhere classified; R74.0 Nonspecific elevation of levels of transaminase and lactic acid dehydrogenase [LDH]; K21.9 Gastro-esophageal reflux disease without esophagitis; I25.10 Atherosclerotic heart disease of native coronary artery without angina pectoris; E03.9 Hypothyroidism, unspecified; R00.1 Bradycardia, unspecified; F32.9 Major depressive disorder, single episode, unspecified; E78.00 Pure hypercholesterolemia, unspecified; N40.0 Benign prostatic hyperplasia without lower urinary tract symptoms; G47.30 Sleep apnea, unspecified; R00.0 Tachycardia, unspecified; E78.5 Hyperlipidemia, unspecified; M79.604 Pain in right leg; M79.605 Pain in left leg; K64.9 Unspecified hemorrhoids; E07.9 Disorder of thyroid, unspecified; M19.90 Unspecified osteoarthritis, unspecified site; K57.90 Diverticulosis of intestine, part unspecified, without perforation or abscess without bleeding; R79.89 Other specified abnormal findings of blood chemistry; R07.9 Chest pain, unspecified; R53.1 Weakness; M25.512 Pain in left shoulder; R29.6 Repeated falls; R26.81 Unsteadiness on feet; I25.2 Old myocardial infarction; Z86.010 Personal history of colon polyps; Z79.82 Long term (current) use of aspirin; Z87.442 Personal history of urinary calculi
CPT/HCPCS: 71045; 74177; 76705; 78226; 80053; 80074; 80162; 82103; 82105; 82272; 82390; 82550; 82728; 82948; 83010; 83520; 83540; 83550; 83615; 83690; 83735; 83880; 84484; 85007; 85025; 85027; 85384; 85610; 85730; 86038; 86039; 86255; 86705; 87340; 93005; 93306; 96365; 96366; 96375; 96376; A9537; J1644; J2543; Q9967